=== PATIENT | male | born 1945 ===

== ENCOUNTER 2020-05-08 02:03 | Inpatient (IN) | payer MEDICARE ==
[2020-05-08] MEDS ORDERED: LORazepam 2 MG/ML VIAL IM PRN (03:24)
--- NOTE | 2020-05-08 11:58 | History and Physical Report ---
GP History & Physical - History of Present Illness Date of admission: 05/08/20 Date of Examination: 05/08/20 Reason for Admission: Danger to self, Danger to others, Impaired reality testing History of Present Illness: HPI Patient is a 74-year-old retired male with past psychiatric history of dementia who presents from [facility] after being brought there from the [facility] that he was at. It is reported that patient has been increasingly more aggressive towards the staff, and the staff at the facility do feel comfortable with the patient until he is had inpatient psychiatric management with medication stabilization PAST PSYCHIATRIC HISTORY: Diagnoses: N/A Suicide attempts or Self-harm behavior unknown Prior psychiatric hospitalizations N/A Substance Abuse history: N/A Previous psychiatric medications tried: Recently changed to Prozac Outpatient treatment: PAST MEDICAL HISTORY: Dementia Family Psychiatric History: None reported or documented SOCIAL HISTORY Marital Status: Living Arrangements: [facility] [place] Employment Status: Retired Access to guns/weapons: NA Education: N/A History of Abuse: N/A Legal History: N/A REVIEW OF SYSTEMS ROS cannot be reliably obtained from the patient due to her confusion and somnolence. MENTAL STATUS EXAMINATION General Appearance and Behavior: Age appropriate, good hygiene, wearing appropriate clothes, uncooperative polite with questioning. Cooperation: Withdrawn Psychomotor Behavior: Psychomotor agitation Mood: N/A Affect and affective range: Flat Thought Process: Tangential Thought Content: Paranoid and confused Speech: Normal volume, Regular rate and rhythm, Intellectual Functioning: Poor Suicidal Ideation: N/A Homicidal Ideation: N/A Impulse Control: Unimpaired Insight and Judgment: Impaired Memory: memory impaired Attention:Distractible, Orientation: Alert, but disoriented and confused Diagnoses: Assessment and Plan - Psychiatric problem (1) Dementia with behavioral disturbance Current Visit: Yes Status: Acute Treatment Plan Suicidal risperidone Patient admitted for inpatient psychiatric evaluation, medication adjustment and close monitoring The patient's behavior, mood, sleep and appetite will be closely monitored. Patient enrolled in individual and group therapeutic sessions and encouraged to attend. Patient provided with a safe and structured environment. Patient's physical health needs will be addressed by the Hospitalist. Hospitalist Consulted Labs including CBC, CMP, Lipid profile and Hemoglobin A1C levels ordered for baseline reference Social Assessment will be completed and the Visitor Services Associate will work with patient and family to ensure a suitable and safe disposition Medication adjustment will be made as clinically indicated Usual Wellness Cheondoism/Preservation: - Start Melatonin 5 mg po QHS to promote circadian rhythm - Start [place]-3 for brain health, reduce impulsivity, and as adjunctive treatment for mood disorder, continue upon discharge given overall benefits. - Start B1 prophylaxis with 200 mg po for 5 days The patient agreed on the treatment plan, understood the risk, benefit, alternative treatment, potential consequence of no treatment, and gave informed consent. Initial Certification Inpatient psych services: I certify that the inpatient psychiatric services are required for treatment that could reasonably be expected to improve the patient's condition. Estimated days: 7 Post hospital care: primary care provider, psychiatric provider Calls Legal Status: Voluntary Patient Problems: Current Active Problems Dementia with behavioral disturbance (Acute) Medications and Allergies Allergies Allergy/AdvReac Type Severity Reaction Status Date / Time No Known Drug Allergies Allergy Unknown Verified 05/08/20 03:11 Home Medications Medication Instructions Recorded Confirmed Last Taken Type Aspirin EC [Halfprin EC] 81 mg PO QDAY 05/08/20 05/08/20 Unknown History Cyanocobalamin [Vitamin B-12] 1,000 mcg PO QMONTH 05/08/20 05/08/[address] [[place] Cooper] 75 mg PO BID 05/08/20 05/08/20 Unknown History LORazepam [Lorazepam] 0.5 mg PO TID 05/08/20 05/08/20 Unknown History Memantine [Namenda] 10 mg PO BID 05/08/20 05/08/20 Unknown History Prazosin [Minipress] 2 mg PO DAILY 05/08/20 05/08/20 Unknown History Simvastatin 40 mg PO HS 05/08/20 05/08/20 Unknown History donepeziL [Aricept] 10 mg PO DAILY 05/08/20 05/08/20 Unknown History traMADoL [Ultram] 50 mg PO TID PRN 05/08/20 05/08/20 Unknown History traZODone [Desyrel] 50 mg PO QHS 05/08/20 05/08/20 Unknown History Active Meds: Active Medications Haloperidol Lactate (Haldol) 5 mg IM Q6H PRN PRN Reason: Agitation Lorazepam (Ativan) 1 mg IM Q6H PRN PRN Reason: Agitation Trazodone HCl (Desyrel) 50 mg PO QHS LOREN Results - Results Labs/Vitals: Last Vital Signs Temp 97.9 F 05/08/20 10:46 Pulse 90 05/08/20 10:46 Resp 17 05/08/20 10:46 BP 159/87 05/08/20 10:46 Pulse Ox 100 05/08/20 10:46 Physical Examination - Constitutional Vitals: Vital Signs Temp Pulse Resp BP Pulse Ox 97.9 F 90 17 159/87 100 05/08/20 10:46 05/08/20 10:46 05/08/20 10:46 05/08/20 10:46 05/08/20 10:46 Temperature -Last 24 Hours Temperature 97.9 F Mental Status Exam - Vital signs Last Vital Signs Temp 97.9 F 05/08/20 10:46 Pulse 90 05/08/20 10:46 Resp 17 05/08/20 10:46 BP 159/87 05/08/20 10:46 Pulse Ox 100 05/08/20 10:46 Assessment and Plan - Psychiatric problem (1) Dementia with behavioral disturbance Current Visit: Yes Status: Acute Physician Certification - Certification Statement Physician Certification Statement: This is an acknowledgement statement that ZACH YEBOAH is a 74 year old M who requires inpatient psychiatric admission for treatment which could reasonably be expected to improve the patient's condition for Estimated period of time patient will need to remain in the hospital: [ ] Plan for post-hospital care: [ ]
[2020-05-08] MEDS: OMEGA-3 FATTY ACIDS/FISH OIL 1 GRAM CAP PO SCH ×2 (13:05→21:03)
[2020-05-08 19:30] LABS: Basophils % (Auto) 0.6 % (0.0-1.8); Eosinophils % (Auto) 0.2 % (0.0-4.3); Hematocrit 38.7 % (35.5-45.6); Hemoglobin 13.1 gm/dl (11.8-15.2); Lymphocytes # (Auto) 1.1 K/mm3 (1.2-5.4); Lymphocytes % (Auto) 13.1 % (13.4-35.0); Mean Corpuscular HGB Conc 34 % (32-34); Mean Corpuscular Volume 98 fl (84-94); Monocytes # (Auto) 0.5 K/mm3 (0.0-0.8); Monocytes % (Auto) 5.7 % (0.0-7.3); Platelet Count 228 K/mm3 (140-440); Red Blood Count 3.97 M/mm3 (3.65-5.03); Red Cell Distribution Width 15.3 % (13.2-15.2)
[2020-05-08 19:54] LABS: Alanine Aminotransferase 10 units/L (7-56); Albumin 3.9 g/dL (3.9-5); BUN/Creatinine Ratio 16; Blood Urea Nitrogen 18 mg/dL (9-20); Calcium 9.7 mg/dL (8.4-10.2); Chol/HDL Ratio 2.68 %; HDL Cholesterol 47 mg/dL (40-59); Hemolysis Index 17; LDL Cholesterol,Direct 68 mg/dL (50-130)
--- NOTE | 2020-05-08 20:53 | Consultation ---
History of Present Illness - Reason for Consult Consult date: 05/08/20 Medical management Requesting physician: ESE RODRIGUEZ - History of Present Illness 74 YO Male with Vascular Dementia with Behavioral Disturbance, Cerebral Atherosclerosis, HLD, PTSD admitted to [facility] for Psychiatric stabilization. Patient seen and evaluated in the recreation room and found to be in no acute distress. No reported nursing events. Patient denies fever, chills, chest pain, palpitation, productive cough, recent ill contacts, or known exposure to COVID-19. Past History Past Medical History: hyperlipidemia, other (See HPI) Past Surgical History: No surgical history, Other (Reviewed) Social history: . denies: smoking, alcohol abuse Family history: hypertension Medications and Allergies Allergies Allergy/AdvReac Type Severity Reaction Status Date / Time No Known Drug Allergies Allergy Unknown Verified 05/08/20 03:11 Home Medications Medication Instructions Recorded Confirmed Last Taken Type Aspirin EC [Halfprin EC] 81 mg PO QDAY 05/08/20 05/08/20 Unknown History Cyanocobalamin [Vitamin B-12] 1,000 mcg PO QMONTH 05/08/20 05/08/[address] [[place] Cooper] 75 mg PO BID 05/08/20 05/08/20 Unknown History LORazepam [Lorazepam] 0.5 mg PO TID 05/08/20 05/08/20 Unknown History Memantine [Namenda] 10 mg PO BID 05/08/20 05/08/20 Unknown History Prazosin [Minipress] 2 mg PO DAILY 05/08/20 05/08/20 Unknown History Simvastatin 40 mg PO HS 05/08/20 05/08/20 Unknown History donepeziL [Aricept] 10 mg PO DAILY 05/08/20 05/08/20 Unknown History traMADoL [Ultram] 50 mg PO TID PRN 05/08/20 05/08/20 Unknown History traZODone [Desyrel] 50 mg PO QHS 05/08/20 05/08/20 Unknown History Active Meds: Active Medications Fish Oil (Fish Oil) 2,000 mg PO BID LOREN Last Admin: 05/08/20 13:05 Dose: Not Given Documented by: Haloperidol Lactate (Haldol) 5 mg IM Q6H PRN PRN Reason: Agitation Lorazepam (Ativan) 1 mg IM Q6H PRN PRN Reason: Agitation Mirtazapine (Remeron) 15 mg PO QHS LOREN Risperidone (Risperdal) 1 mg PO BID LOREN Review of Systems Constitutional: no weight gain, no fever, no chills, no sweats Ears, nose, mouth and throat: no ear pain, no ear discharge, no decreased hearing, no nasal congestion Cardiovascular: no chest pain, no palpitations, no rapid/irregular heart beat, no syncope Respiratory: no cough, no cough with sputum, no shortness of breath Gastrointestinal: no abdominal pain, no vomiting, no diarrhea, no change in bowel habits, no hematemesis Genitourinary Male: no hematuria, no flank pain, no discharge, no urinary hesitancy, no nocturia Rectal: no pain, no bleeding Musculoskeletal: no neck pain, no shooting arm pain Integumentary: no rash, no pruritis, no wounds, no jaundice Neurological: no head injury, no paralysis, no numbness, no tingling, no syncope Psychiatric: no anxiety Endocrine: no cold intolerance, no heat intolerance, no excessive thirst, no polyuria Hematologic/Lymphatic: no easy bruising, no easy bleeding Exam - Constitutional Vitals: Temp Pulse Resp BP Pulse Ox 97.9 F 90 17 159/87 100 05/08/20 10:46 05/08/20 10:46 05/08/20 10:46 05/08/20 10:46 05/08/20 10:46 General appearance: Present: no acute distress, well-nourished - EENT Eyes: Present: PERRL ENT: hearing intact, clear oral mucosa - Neck Neck: Present: supple, normal ROM - Respiratory Respiratory effort: normal Respiratory: bilateral: CTA - Cardiovascular Heart Sounds: Present: S1 & S2. Absent: rub, click - Extremities Extremities: pulses symmetrical, No edema Peripheral Pulses: within normal limits - Abdominal General gastrointestinal: Present: soft, non-tender, non-distended, normal bowel sounds Male genitourinary: Present: normal - Integumentary Integumentary: Present: clear, warm, dry - Musculoskeletal Musculoskeletal: gait normal, strength equal bilaterally - Psychiatric Psychiatric: appropriate mood/affect, intact judgment & insight - Neurologic Neurologic: CNII-XII intact, moves all extremities Results - Labs CBC & Chem 7: 05/08/20 19:10 05/08/20 19:10 Labs: Abnormal lab results 05/08/20 05/08/20 Range/Units 19:10 19:10 MCV 98 H (84-94) fl MCH 33 H (28-32) pg RDW 15.3 H (13.2-15.2) % Lymph % (Auto) 13.1 L (13.4-35.0) % Lymph # (Auto) 1.1 L (1.2-5.4) K/mm3 Seg Neutrophils % 80.4 H (40.0-70.0) % Sodium 146 H (137-145) mmol/L Potassium 3.5 L (3.6-5.0) mmol/L Chloride 110.9 H (98-107) mmol/L Glucose 114 H (75-100) mg/dL Assessment and Plan - Patient Problems (1) Dementia with behavioral disturbance Current Visit: Yes Status: Acute Plan to address problem: Verbal prompting, verbal redirection, benzodiazepine therapy as clinical indicated, supportive care. (2) Cerebral atherosclerosis Current Visit: Yes Status: Acute Plan to address problem: Risk factor reduction therapy, supportive care. Aspirin therapy.
[2020-05-08] MEDS: MIRTAZAPINE 15 MG TAB PO SCH (21:03)
[2020-05-08] MEDS: risperiDONE 1 MG TAB PO SCH (21:03)
[2020-05-08] MEDS ORDERED: traZODone 50 MG TAB PO SCH (22:00)
[2020-05-08] MEDS ORDERED: NON-FORMULARY EACH (Simvastatin [Simvastatin] 40 MG) PO SCH (22:00)
[2020-05-08] MEDS: traZODone 50 MG TAB PO SCH (22:02)
[2020-05-08] MEDS: MEMANTINE 10 MG TAB PO SCH (22:02)
[2020-05-08] MEDS: DICLOFENAC DR 75 MG TAB PO SCH (22:03)
[2020-05-08] MEDS: PRAVASTATIN 80 MG TAB PO SCH (22:03)
--- NOTE | 2020-05-09 07:25 | Progress Note ---
Subjective Date of service: 05/09/20 Principal diagnosis: (1) Dementia with behavioral disturbance Subjective Comment: Per Psych Nurse: Last evening the patient was confused. He was tearful one time while looking for his . He was easily redirectable. Patient was medication compliant. He had no difficulty going to sleep when he went to bed. Overnight the patient rested quietly. He presents as sleeping 8 plus hours. Will continue to monitor patient for safety. Psych Progress Patient has severe demetia, not articulate and able to comprehend questions asked. Patient is being managed and observed for behv disturbances reported from receiving facility. REVIEW OF SYSTEMS ROS cannot be reliably obtained from the patient due to her confusion and somnolence. MENTAL STATUS EXAMINATION General Appearance and Behavior: Age appropriate, good hygiene, wearing appropriate clothes, uncooperative polite with questioning. Cooperation: Withdrawn Psychomotor Behavior: Psychomotor agitation Mood: N/A Affect and affective range: Flat Thought Process: Tangential Thought Content: Paranoid and confused Speech: Normal volume, Regular rate and rhythm, Intellectual Functioning: Poor Suicidal Ideation: N/A Homicidal Ideation: N/A Impulse Control: Unimpaired Insight and Judgment: Impaired Memory: memory impaired Attention:Distractible, Orientation: Alert, but disoriented and confused Diagnoses: Assessment and Plan - Psychiatric problem (1) Dementia with behavioral disturbance Current Visit: Yes Status: Acute Treatment Plan Started on Risperidone, will continue to monitor Patient admitted for inpatient psychiatric evaluation, medication adjustment and close monitoring The patient's behavior, mood, sleep and appetite will be closely monitored. Patient enrolled in individual and group therapeutic sessions and encouraged to attend. Patient provided with a safe and structured environment. Patient's physical health needs will be addressed by the Hospitalist. Hospitalist Consulted Labs including CBC, CMP, Lipid profile and Hemoglobin A1C levels ordered for baseline reference Social Assessment will be completed and the Special Delivery Mail Carrier will work with patient and family to ensure a suitable and safe disposition Medication adjustment will be made as clinically indicated Usual Wellness Shinto/Preservation: - Start Melatonin 5 mg po QHS to promote circadian rhythm - Start [place]-3 for brain health, reduce impulsivity, and as adjunctive treatment for mood disorder, continue upon discharge given overall benefits. - Start B1 prophylaxis with 200 mg po for 5 days The patient agreed on the treatment plan, understood the risk, benefit, alternative treatment, potential consequence of no treatment, and gave informed consent. Initial Certification Inpatient psych services: I certify that the inpatient psychiatric services are required for treatment th at could reasonably be expected to improve the patient's condition. Estimated days: 6 Post hospital care: primary care provider, psychiatric provider Assessment and Plan - Patient Problems (1) Dementia with behavioral disturbance Current Visit: Yes Status: Acute Medications and Allergies Allergies Allergy/AdvReac Type Severity Reaction Status Date / Time No Known Drug Allergies Allergy Unknown Verified 05/08/20 03:11 Home Medications Medication Instructions Recorded Confirmed Last Taken Type Aspirin EC [Halfprin EC] 81 mg PO QDAY 05/08/20 05/08/20 Unknown History Cyanocobalamin [Vitamin B-12] 1,000 mcg PO QMONTH 05/08/20 05/08/[address] [[place] Cooper] 75 mg PO BID 05/08/20 05/08/20 Unknown History LORazepam [Lorazepam] 0.5 mg PO TID 05/08/20 05/08/20 Unknown History Memantine [Namenda] 10 mg PO BID 05/08/20 05/08/20 Unknown History Prazosin [Minipress] 2 mg PO DAILY 05/08/20 05/08/20 Unknown History Simvastatin 40 mg PO HS 05/08/20 05/08/20 Unknown History donepeziL [Aricept] 10 mg PO DAILY 05/08/20 05/08/20 Unknown History traMADoL [Ultram] 50 mg PO TID PRN 05/08/20 05/08/20 Unknown History traZODone [Desyrel] 50 mg PO QHS 05/08/20 05/08/20 Unknown History Active Meds: Active Medications Aspirin (Halfprin Ec) 81 mg PO QDAY [facility] Cyanocobalamin (Vitamin B-12) 1,000 mcg PO QMONTH [facility] Diclofenac Sodium (Voltaren Dr) 75 mg PO BID [facility] Last Admin: 05/08/20 22:03 Dose: Not Given Documented by: Donepezil HCl (Aricept) 10 mg PO DAILY [facility] Fish Oil (Fish Oil) 2,000 mg PO BID [facility] Last Admin: 05/08/20 21:03 Dose: 2,000 mg Documented by: Haloperidol Lactate (Haldol) 5 mg IM Q6H PRN PRN Reason: Agitation Lorazepam (Ativan) 1 mg IM Q6H PRN PRN Reason: Agitation Lorazepam (Ativan) 0.5 mg PO TID [facility] Memantine (Memantine) 10 mg PO BID [facility] Last Admin: 05/08/20 22:02 Dose: Not Given Documented by: Mirtazapine (Remeron) 15 mg PO QHS [facility] Last Admin: 05/08/20 21:03 Dose: 15 mg Documented by: Pravastatin Sodium (Pravachol) 80 mg PO QHS [facility] Last Admin: 05/08/20 22:03 Dose: Not Given Documented by: Prazosin HCl (Prazosin) 2 mg PO DAILY [facility] Risperidone (Risperdal) 1 mg PO BID [facility] Last Admin: 05/08/20 21:03 Dose: 1 mg Documented by: Tramadol HCl (Ultram) 50 mg PO TID PRN PRN Reason: arthritis Trazodone HCl (Desyrel) 50 mg PO QHS [facility] Last Admin: 05/08/20 22:02 Dose: Not Given Documented by: Results - Results Labs/Vitals: Laboratory Last Values WBC 8.7 K/mm3 (4.5-11.0) 05/08/20 19:10 RBC 3.97 M/mm3 (3.65-5.03) 05/08/20 19:10 Hgb 13.1 gm/dl (11.8-15.2) 05/08/20 19:10 Hct 38.7 % (35.5-45.6) 05/08/20 19:10 MCV 98 fl (84-94) H 05/08/20 19:10 MCH 33 pg (28-32) H 05/08/20 19:10 MCHC 34 % (32-34) 05/08/20 19:10 RDW 15.3 % (13.2-15.2) H 05/08/20 19:10 Plt Count 228 K/mm3 (140-440) 05/08/20 19:10 Lymph % (Auto) 13.1 % (13.4-35.0) L 05/08/20 19:10 [place] % (Auto) 5.7 % (0.0-7.3) 05/08/20 19:10 Eos % (Auto) 0.2 % (0.0-4.3) 05/08/20 19:10 Baso % (Auto) 0.6 % (0.0-1.8) 05/08/20 19:10 Lymph # (Auto) 1.1 K/mm3 (1.2-5.4) L 05/08/20 19:10 [place] # (Auto) 0.5 K/mm3 (0.0-0.8) 05/08/20 19:10 Eos # (Auto) 0.0 K/mm3 (0.0-0.4) 05/08/20 19:10 Baso # (Auto) 0.0 K/mm3 (0.0-0.1) 05/08/20 19:10 Seg Neutrophils % 80.4 % (40.0-70.0) H 05/08/20 19:10 Seg Neutrophils # 7.0 K/mm3 (1.8-7.7) 05/08/20 19:10 Sodium 146 mmol/L (137-145) H 05/08/20 19:10 Potassium 3.5 mmol/L (3.6-5.0) L 05/08/20 19:10 Chloride 110.9 mmol/L (98-107) H 05/08/20 19:10 Carbon Dioxide 26 mmol/L (22-30) 05/08/20 19:10 Anion Gap 13 mmol/L 05/08/20 19:10 BUN 18 mg/dL (9-20) 05/08/20 19:10 Creatinine 1.1 mg/dL (0.8-1.3) 05/08/20 19:10 Estimated GFR > 60 ml/min 05/08/20 19:10 BUN/Creatinine Ratio 16 % 05/08/20 19:10 Glucose 114 mg/dL (75-100) H 05/08/20 19:10 POC Glucose 101 mg/dL (70-105) 05/08/20 19:24 Hemoglobin A1c 5.3 % (4-6) 05/08/20 19:10 Calcium 9.7 mg/dL (8.4-10.2) 05/08/20 19:10 Total Bilirubin 0.90 mg/dL (0.1-1.2) 05/08/20 19:10 AST 25 units/L (5-40) 05/08/20 19:10 ALT 10 units/L (7-56) 05/08/20 19:10 Alkaline Phosphatase 84 units/L (35-129) 05/08/20 19:10 Total Protein 6.5 g/dL (6.3-8.2) 05/08/20 19:10 Albumin 3.9 g/dL (3.9-5) 05/08/20 19:10 Albumin/Globulin Ratio 1.5 % 05/08/20 19:10 Triglycerides 76 mg/dL (2-149) 05/08/20 19:10 Cholesterol 126 mg/dL (50-199) 05/08/20 19:10 LDL Cholesterol Direct 68 mg/dL (50-130) 05/08/20 19:10 HDL Cholesterol 47 mg/dL (40-59) 05/08/20 19:10 Cholesterol/HDL Ratio 2.68 % 05/08/20 19:10 TSH 0.524 mlU/mL (0.270-4.200) 05/08/20 19:10 Last Vital Signs Temp 97.9 F 05/08/20 10:46 Pulse 90 05/08/20 10:46 Resp 17 05/08/20 10:46 BP 159/87 05/08/20 10:46 Pulse Ox 100 05/08/20 10:46
[2020-05-09] MEDS ORDERED: PRAZOSIN 2 MG PO SCH (10:00)
[2020-05-09] MEDS: DICLOFENAC DR 75 MG TAB PO SCH ×2 (10:30→21:07)
[2020-05-09] MEDS: DONEPEZIL 10 MG TAB PO SCH (10:33)
[2020-05-09] MEDS: risperiDONE 1 MG TAB PO SCH ×2 (10:33→21:08)
[2020-05-09] MEDS: LORazepam 0.5 MG TAB PO SCH ×3 (10:33→20:42)
[2020-05-09] MEDS: MEMANTINE 10 MG TAB PO SCH ×2 (10:34→21:07)
[2020-05-09] MEDS: OMEGA-3 FATTY ACIDS/FISH OIL 1 GRAM CAP PO SCH ×2 (10:34→21:08)
[2020-05-09] MEDS: PRAZOSIN 1 MG CAP PO SCH (11:04)
[2020-05-09] MEDS: ASPIRIN EC 81 MG TAB PO SCH (11:05)
--- NOTE | 2020-05-09 20:54 | Progress Note ---
Assessment and Plan - Patient Problems (1) Dementia with behavioral disturbance Current Visit: Yes Status: Acute Plan to address problem: Verbal prompting, verbal redirection, benzodiazepine therapy as clinical indicated, supportive care. (2) Cerebral atherosclerosis Current Visit: Yes Status: Acute Plan to address problem: Risk factor reduction therapy, supportive care. Aspirin therapy. History Interval history: 74 YO Male with Vascular Dementia with Behavioral Disturbance, Cerebral Atherosclerosis, HLD, PTSD admitted to [facility] for Psychiatric stabilization. Patient seen and evaluated in the recreation room and found to be in no acute distress. No reported nursing events. Hospitalist Physical - Constitutional Vitals: Temp Pulse Resp BP Pulse Ox 97.8 F 101 H 20 89/54 93 05/09/20 08:33 05/09/20 11:04 05/09/20 08:33 05/09/20 11:04 05/09/20 08:33 General appearance: Present: no acute distress, well-nourished - EENT Eyes: Present: PERRL, EOM intact ENT: hearing intact - Neck Neck: Present: supple - Respiratory Respiratory effort: normal Respiratory: bilateral: CTA - Cardiovascular Rhythm: regular Heart Sounds: Present: S1 & S2 - Extremities Extremities: no ischemia Peripheral Pulses: within normal limits - Abdominal General gastrointestinal: soft, non-tender, non-distended - Integumentary Integumentary: Present: clear, dry - Psychiatric Psychiatric: cooperative - Neurologic Neurologic: CNII-XII intact Results - Labs CBC & Chem 7: 05/08/20 19:10 05/08/20 19:10 Labs: Laboratory Last Values WBC 8.7 K/mm3 (4.5-11.0) 05/08/20 19:10 RBC 3.97 M/mm3 (3.65-5.03) 05/08/20 19:10 Hgb 13.1 gm/dl (11.8-15.2) 05/08/20 19:10 Hct 38.7 % (35.5-45.6) 05/08/20 19:10 MCV 98 fl (84-94) H 05/08/20 19:10 MCH 33 pg (28-32) H 05/08/20 19:10 MCHC 34 % (32-34) 05/08/20 19:10 RDW 15.3 % (13.2-15.2) H 05/08/20 19:10 Plt Count 228 K/mm3 (140-440) 05/08/20 19:10 Lymph % (Auto) 13.1 % (13.4-35.0) L 05/08/20 19:10 [place] % (Auto) 5.7 % (0.0-7.3) 05/08/20 19:10 Eos % (Auto) 0.2 % (0.0-4.3) 05/08/20 19:10 Baso % (Auto) 0.6 % (0.0-1.8) 05/08/20 19:10 Lymph # (Auto) 1.1 K/mm3 (1.2-5.4) L 05/08/20 19:10 [place] # (Auto) 0.5 K/mm3 (0.0-0.8) 05/08/20 19:10 Eos # (Auto) 0.0 K/mm3 (0.0-0.4) 05/08/20 19:10 Baso # (Auto) 0.0 K/mm3 (0.0-0.1) 05/08/20 19:10 Seg Neutrophils % 80.4 % (40.0-70.0) H 05/08/20 19:10 Seg Neutrophils # 7.0 K/mm3 (1.8-7.7) 05/08/20 19:10 Sodium 146 mmol/L (137-145) H 05/08/20 19:10 Potassium 3.5 mmol/L (3.6-5.0) L 05/08/20 19:10 Chloride 110.9 mmol/L (98-107) H 05/08/20 19:10 Carbon Dioxide 26 mmol/L (22-30) 05/08/20 19:10 Anion Gap 13 mmol/L 05/08/20 19:10 BUN 18 mg/dL (9-20) 05/08/20 19:10 Creatinine 1.1 mg/dL (0.8-1.3) 05/08/20 19:10 Estimated GFR > 60 ml/min 05/08/20 19:10 BUN/Creatinine Ratio 16 % 05/08/20 19:10 Glucose 114 mg/dL (75-100) H 05/08/20 19:10 POC Glucose 101 mg/dL (70-105) 05/08/20 19:24 Hemoglobin A1c 5.3 % (4-6) 05/08/20 19:10 Calcium 9.7 mg/dL (8.4-10.2) 05/08/20 19:10 Total Bilirubin 0.90 mg/dL (0.1-1.2) 05/08/20 19:10 AST 25 units/L (5-40) 05/08/20 19:10 ALT 10 units/L (7-56) 05/08/20 19:10 Alkaline Phosphatase 84 units/L (35-129) 05/08/20 19:10 Total Protein 6.5 g/dL (6.3-8.2) 05/08/20 19:10 Albumin 3.9 g/dL (3.9-5) 05/08/20 19:10 Albumin/Globulin Ratio 1.5 % 05/08/20 19:10 Triglycerides 76 mg/dL (2-149) 05/08/20 19:10 Cholesterol 126 mg/dL (50-199) 05/08/20 19:10 LDL Cholesterol Direct 68 mg/dL (50-130) 05/08/20 19:10 HDL Cholesterol 47 mg/dL (40-59) 05/08/20 19:10 Cholesterol/HDL Ratio 2.68 % 05/08/20 19:10 TSH 0.524 mlU/mL (0.270-4.200) 05/08/20 19:10 [place]/IV: Voiding Method Toilet Active Medications - Current Medications Current Medications: Generic Name Dose Route Start Last Admin Trade Name Freq PRN Reason Stop Dose Admin Aspirin 81 mg 05/09/20 10:00 05/09/20 11:05 Halfprin Ec PO 81 mg QDAY LOREN Administration Cyanocobalamin 1,000 mcg 06/07/20 10:00 Vitamin B-12 PO QMONTH LOREN Diclofenac Sodium 75 mg 05/08/20 22:00 05/09/20 10:[address] PO 75 mg BID LOREN Administration Donepezil HCl 10 mg 05/09/20 10:00 05/09/20 10:33 Aricept PO 10 mg DAILY LOREN Administration Fish Oil 2,000 mg 05/08/20 12:00 05/09/20 10:34 Fish Oil PO 2,000 mg BID LOREN Administration Haloperidol Lactate 5 mg 05/08/20 03:25 Haldol IM Q6H PRN Agitation Lorazepam 1 mg 05/08/20 03:24 Ativan IM Q6H PRN Agitation Lorazepam 0.5 mg 05/09/20 08:00 05/09/20 20:42 Ativan PO 0.5 mg TID LOREN Administration Memantine 10 mg 05/08/20 22:00 05/09/20 10:34 Memantine PO 10 mg BID LOREN Administration Mirtazapine 15 mg 05/08/20 22:00 05/08/20 21:03 Remeron PO 15 mg QHS LOREN Administration Pravastatin Sodium 80 mg 05/08/20 22:00 05/08/20 22:03 Pravachol PO Not Given QHS LOREN Prazosin HCl 2 mg 05/09/20 10:00 05/09/20 11:04 Prazosin PO Not Given DAILY LOREN Risperidone 1 mg 05/08/20 22:00 05/09/20 10:33 Risperdal PO 1 mg BID LOREN Administration Tramadol HCl 50 mg 05/08/20 20:53 Ultram PO TID PRN arthritis Trazodone HCl 50 mg 05/08/20 22:00 05/08/20 22:02 Desyrel PO Not Given QHS [facility]
[2020-05-09] MEDS: PRAVASTATIN 80 MG TAB PO SCH (21:07)
[2020-05-09] MEDS: traZODone 50 MG TAB PO SCH (21:08)
[2020-05-09] MEDS: MIRTAZAPINE 15 MG TAB PO SCH (21:08)
--- NOTE | 2020-05-10 07:37 | Progress Note ---
Subjective Date of service: 05/10/20 Principal diagnosis: (1) Dementia with behavioral disturbance Subjective Comment: Per Psych Nurse: Received sitting quietly on the w/c. A&OX1, name only. Pt somewhat confused. No sign of pain noted. No acute distress observed and none reported. Will continue to monitor. Psych Progress Attempts were made to try to have a conversation with patient this a.m., patient was repetitive of the questions I was asking him. Patient has severe demetia, not articulate and able to comprehend questions asked. Patient is being managed and observed for behv disturbances reported from receiving facility. Reason for continued inpatient psychiatric hospitalization: We will continue to observe for mood and behavioral stability REVIEW OF SYSTEMS ROS cannot be reliably obtained from the patient due to her confusion and somnolence. MENTAL STATUS EXAMINATION General Appearance and Behavior: Age appropriate, good hygiene, wearing appropriate clothes, uncooperative polite with questioning. Cooperation: Withdrawn Psychomotor Behavior: Psychomotor agitation Mood: N/A Affect and affective range: Flat Thought Process: Tangential Thought Content: Paranoid and confused Speech: Normal volume, Regular rate and rhythm, Intellectual Functioning: Poor Suicidal Ideation: N/A Homicidal Ideation: N/A Impulse Control: Unimpaired Insight and Judgment: Impaired Memory: memory impaired Attention:Distractible, Orientation: Alert, but disoriented and confused Diagnoses: Assessment and Plan - Psychiatric problem (1) Dementia with behavioral disturbance Current Visit: Yes Status: Acute Treatment Plan Started on Risperidone, will continue to monitor Patient admitted for inpatient psychiatric evaluation, medication adjustment and close monitoring The patient's behavior, mood, sleep and appetite will be closely monitored. Patient enrolled in individual and group therapeutic sessions and encouraged to attend. Patient provided with a safe and structured environment. Patient's physical health needs will be addressed by the Hospitalist. Hospitalist Consulted Labs including CBC, CMP, Lipid profile and Hemoglobin A1C levels ordered for baseline reference Social Assessment will be completed and the Poultry Scalder will work with patient and family to ensure a suitable and safe disposition Medication adjustment will be made as clinically indicated Usual Wellness Christianity/Preservation: - Start Melatonin 5 mg po QHS to promote circadian rhythm - Start [place]-3 for brain health, reduce impulsivity, and as adjunctive treatment for mood disorder, continue upon discharge given overall benefits. - Start B1 prophylaxis with 200 mg po for 5 days The patient agreed on the treatment plan, understood the risk, benefit, alternative treatment, potential consequence of no treatment, and gave informed consent. Initial Certification Inpatient psych services: I certify that the inpatient psychiatric services are required for treatment that could reasonably be expected to improve the patient's condition. Estimated days:5 Post hospital care: primary care provider, psychiatric provider Assessment and Plan - Patient Problems (1) Dementia with behavioral disturbance Current Visit: Yes Status: Acute Medications and Allergies Allergies Allergy/AdvReac Type Severity Reaction Status Date / Time No Known Drug Allergies Allergy Unknown Verified 05/08/20 03:11 Home Medications Medication Instructions Recorded Confirmed Last Taken Type Aspirin EC [Halfprin EC] 81 mg PO QDAY 05/08/20 05/08/20 Unknown History Cyanocobalamin [Vitamin B-12] 1,000 mcg PO QMONTH 05/08/20 05/08/[address] [[place]] 75 mg PO BID 05/08/20 05/08/20 Unknown History LORazepam [Lorazepam] 0.5 mg PO TID 05/08/20 05/08/20 Unknown History Memantine [Namenda] 10 mg PO BID 05/08/20 05/08/20 Unknown History Prazosin [Minipress] 2 mg PO DAILY 05/08/20 05/08/20 Unknown History Simvastatin 40 mg PO HS 05/08/20 05/08/20 Unknown History donepeziL [Aricept] 10 mg PO DAILY 05/08/20 05/08/20 Unknown History traMADoL [Ultram] 50 mg PO TID PRN 05/08/20 05/08/20 Unknown History traZODone [Desyrel] 50 mg PO QHS 05/08/20 05/08/20 Unknown History Active Meds: Active Medications Aspirin (Halfprin Ec) 81 mg PO QDAY [facility] Last Admin: 05/09/20 11:05 Dose: 81 mg Documented by: Cyanocobalamin (Vitamin B-12) 1,000 mcg PO QMONTH [facility] Diclofenac Sodium ([place] Cooper) 75 mg PO BID [facility] Last Admin: 05/09/20 21:07 Dose: 75 mg Documented by: Donepezil HCl (Aricept) 10 mg PO DAILY [facility] Last Admin: 05/09/20 10:33 Dose: 10 mg Documented by: Fish Oil (Fish Oil) 2,000 mg PO BID [facility] Last Admin: 05/09/20 21:08 Dose: 2,000 mg Documented by: Haloperidol Lactate (Haldol) 5 mg IM Q6H PRN PRN Reason: Agitation Lorazepam (Ativan) 1 mg IM Q6H PRN PRN Reason: Agitation Lorazepam (Ativan) 0.5 mg PO TID [facility] Last Admin: 05/09/20 20:42 Dose: 0.5 mg Documented by: Memantine (Memantine) 10 mg PO BID [facility] Last Admin: 05/09/20 21:07 Dose: 10 mg Documented by: Mirtazapine (Remeron) 15 mg PO QHS [facility] Last Admin: 05/09/20 21:08 Dose: 15 mg Documented by: Pravastatin Sodium (Pravachol) 80 mg PO QHS [facility] Last Admin: 05/09/20 21:07 Dose: 80 mg Documented by: Prazosin HCl (Prazosin) 2 mg PO DAILY [facility] Last Admin: 05/09/20 11:04 Dose: Not Given Documented by: Risperidone (Risperdal) 1 mg PO BID [facility] Last Admin: 05/09/20 21:08 Dose: 1 mg Documented by: Tramadol HCl (Ultram) 50 mg PO TID PRN PRN Reason: arthritis Trazodone HCl (Desyrel) 50 mg PO QHS [facility] Last Admin: 05/09/20 21:08 Dose: 50 mg Documented by: Results - Results Labs/Vitals: Laboratory Last Values WBC 8.7 K/mm3 (4.5-11.0) 05/08/20 19:10 RBC 3.97 M/mm3 (3.65-5.03) 05/08/20 19:10 Hgb 13.1 gm/dl (11.8-15.2) 05/08/20 19:10 Hct 38.7 % (35.5-45.6) 05/08/20 19:10 MCV 98 fl (84-94) H 05/08/20 19:10 MCH 33 pg (28-32) H 05/08/20 19:10 MCHC 34 % (32-34) 05/08/20 19:10 RDW 15.3 % (13.2-15.2) H 05/08/20 19:10 Plt Count 228 K/mm3 (140-440) 05/08/20 19:10 Lymph % (Auto) 13.1 % (13.4-35.0) L 05/08/20 19:10 [place] % (Auto) 5.7 % (0.0-7.3) 05/08/20 19:10 Eos % (Auto) 0.2 % (0.0-4.3) 05/08/20 19:10 Baso % (Auto) 0.6 % (0.0-1.8) 05/08/20 19:10 Lymph # (Auto) 1.1 K/mm3 (1.2-5.4) L 05/08/20 19:10 [place] # (Auto) 0.5 K/mm3 (0.0-0.8) 05/08/20 19:10 Eos # (Auto) 0.0 K/mm3 (0.0-0.4) 05/08/20 19:10 Baso # (Auto) 0.0 K/mm3 (0.0-0.1) 05/08/20 19:10 Seg Neutrophils % 80.4 % (40.0-70.0) H 05/08/20 19:10 Seg Neutrophils # 7.0 K/mm3 (1.8-7.7) 05/08/20 19:10 Sodium 146 mmol/L (137-145) H 05/08/20 19:10 Potassium 3.5 mmol/L (3.6-5.0) L 05/08/20 19:10 Chloride 110.9 mmol/L (98-107) H 05/08/20 19:10 Carbon Dioxide 26 mmol/L (22-30) 05/08/20 19:10 Anion Gap 13 mmol/L 05/08/20 19:10 BUN 18 mg/dL (9-20) 05/08/20 19:10 Creatinine 1.1 mg/dL (0.8-1.3) 05/08/20 19:10 Estimated GFR > 60 ml/min 05/08/20 19:10 BUN/Creatinine Ratio 16 % 05/08/20 19:10 Glucose 114 mg/dL (75-100) H 05/08/20 19:10 POC Glucose 101 mg/dL (70-105) 05/08/20 19:24 Hemoglobin A1c 5.3 % (4-6) 05/08/20 19:10 Calcium 9.7 mg/dL (8.4-10.2) 05/08/20 19:10 Total Bilirubin 0.90 mg/dL (0.1-1.2) 05/08/20 19:10 AST 25 units/L (5-40) 05/08/20 19:10 ALT 10 units/L (7-56) 05/08/20 19:10 Alkaline Phosphatase 84 units/L (35-129) 05/08/20 19:10 Total Protein 6.5 g/dL (6.3-8.2) 05/08/20 19:10 Albumin 3.9 g/dL (3.9-5) 05/08/20 19:10 Albumin/Globulin Ratio 1.5 % 05/08/20 19:10 Triglycerides 76 mg/dL (2-149) 05/08/20 19:10 Cholesterol 126 mg/dL (50-199) 05/08/20 19:10 LDL Cholesterol Direct 68 mg/dL (50-130) 05/08/20 19:10 HDL Cholesterol 47 mg/dL (40-59) 05/08/20 19:10 Cholesterol/HDL Ratio 2.68 % 05/08/20 19:10 TSH 0.524 mlU/mL (0.270-4.200) 05/08/20 19:10 Last Vital Signs Temp 97.8 F 05/09/20 19:08 Pulse 116 H 05/09/20 19:08 Resp 22 05/09/20 19:08 BP 107/88 05/09/20 19:08 Pulse Ox 94 05/09/20 19:08
[2020-05-10] MEDS: LORazepam 0.5 MG TAB PO SCH ×3 (10:11→20:52)
[2020-05-10] MEDS: risperiDONE 1 MG TAB PO SCH ×2 (10:11→21:47)
[2020-05-10] MEDS: DONEPEZIL 10 MG TAB PO SCH (10:12)
[2020-05-10] MEDS: MEMANTINE 10 MG TAB PO SCH ×2 (10:12→21:46)
[2020-05-10] MEDS: DICLOFENAC DR 75 MG TAB PO SCH ×2 (10:12→21:46)
[2020-05-10] MEDS: OMEGA-3 FATTY ACIDS/FISH OIL 1 GRAM CAP PO SCH ×2 (10:14→21:45)
[2020-05-10] MEDS: ASPIRIN EC 81 MG TAB PO SCH (10:14)
[2020-05-10] MEDS: PRAZOSIN 1 MG CAP PO SCH (10:15)
[2020-05-10] MEDS: MIRTAZAPINE 15 MG TAB PO SCH (21:45)
[2020-05-10] MEDS: PRAVASTATIN 80 MG TAB PO SCH (21:46)
[2020-05-10] MEDS: traZODone 50 MG TAB PO SCH (21:47)
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
[2020-05-11] MEDS: DICLOFENAC DR 75 MG TAB PO SCH ×2 (09:52→21:34)
[2020-05-11] MEDS: OMEGA-3 FATTY ACIDS/FISH OIL 1 GRAM CAP PO SCH ×2 (09:53→21:38)
[2020-05-11] MEDS: ASPIRIN EC 81 MG TAB PO SCH (09:53)
[2020-05-11] MEDS: DONEPEZIL 10 MG TAB PO SCH (09:54)
[2020-05-11] MEDS: risperiDONE 1 MG TAB PO SCH ×2 (09:54→21:40)
[2020-05-11] MEDS: LORazepam 0.5 MG TAB PO SCH ×3 (09:54→21:36)
[2020-05-11] MEDS: PRAZOSIN 1 MG CAP PO SCH (09:54)
[2020-05-11] MEDS: MEMANTINE 10 MG TAB PO SCH ×2 (09:56→21:39)
[2020-05-11] MEDS ORDERED: risperiDONE 1 MG TAB PO SCH (10:00)
[2020-05-11] MEDS: HALOPERIDOL LACTATE 5 MG/1 ML INJ IM PRN (12:21)
[2020-05-11] MEDS: traZODone 50 MG TAB PO SCH (21:35)
[2020-05-11] MEDS: MIRTAZAPINE 15 MG TAB PO SCH (21:39)
[2020-05-11] MEDS: PRAVASTATIN 80 MG TAB PO SCH (21:40)
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
[2020-05-12] MEDS: LORazepam 0.5 MG TAB PO SCH ×3 (10:55→21:08)
[2020-05-12] MEDS: risperiDONE 1 MG TAB PO SCH ×2 (14:05→21:07)
[2020-05-12] MEDS: MEMANTINE 10 MG TAB PO SCH ×2 (14:05→21:08)
[2020-05-12] MEDS: DONEPEZIL 10 MG TAB PO SCH (14:05)
[2020-05-12] MEDS: OMEGA-3 FATTY ACIDS/FISH OIL 1 GRAM CAP PO SCH ×2 (14:05→21:07)
[2020-05-12] MEDS: DICLOFENAC DR 75 MG TAB PO SCH ×2 (14:06→21:07)
[2020-05-12] MEDS: PRAZOSIN 1 MG CAP PO SCH (14:06)
[2020-05-12] MEDS: ASPIRIN EC 81 MG TAB PO SCH (14:25)
[2020-05-12] MEDS: PRAVASTATIN 80 MG TAB PO SCH (21:07)
[2020-05-12] MEDS: MIRTAZAPINE 15 MG TAB PO SCH (21:08)
[2020-05-12] MEDS: HALOPERIDOL LACTATE 5 MG/1 ML INJ IM PRN (21:38)
[2020-05-12] MEDS: traMADol 50 MG TAB PO PRN (21:39)
--- NOTE | 2020-05-13 09:28 | Progress Note ---
Subjective Date of service: 05/13/20 Principal diagnosis: (1) Dementia with behavioral disturbance Subjective Comment: The patient's medical record was reviewed and the patient's medical record was discussed with the nursing staff. The nurse caring for the patient states, he is combative, and not participating in group, pacing and taking things. During my interview with the patient today he is sleeping. He easily arouses. He is confused and difficult to follow. He's unable to give any insight as to how he is feeling. Reason for continued inpatient psychiatric hospitalization: Pt still aggressive, combative and resistive to care, not participating in group, will continue to observe for mood and behavioral stability REVIEW OF SYSTEMS ROS cannot be reliably obtained from the patient due to her confusion and somnolence. MENTAL STATUS EXAMINATION General Appearance and Behavior: Age appropriate, good hygiene, wearing appropriate clothes, cooperative Cooperation: Psychomotor Behavior: Psychomotor normal Mood: N/A Affect and affective range: Flat Thought Process: Tangential Thought Content: confused Speech: nonsensical Suicidal Ideation: N/A Homicidal Ideation: N/A Impulse Control: Unimpaired Insight and Judgment: Impaired Memory: memory impaired Attention: Distractible, Orientation: Alert, but disoriented and confused Assessment and Plan (1) Dementia with behavioral disturbance Current Visit: Yes Status: Acute Treatment Plan Patient admitted for inpatient psychiatric evaluation, medication adjustment and close monitoring The patient's behavior, mood, sleep and appetite will be closely monitored. Patient enrolled in individual and group therapeutic sessions and encouraged to attend. Patient provided with a safe and structured environment. Patient's physical health needs will be addressed by the Hospitalist. Hospitalist Consulted Labs including CBC, CMP, Lipid profile and Hemoglobin A1C levels ordered for baseline reference Social Assessment will be completed and the Area Coordinator will work with patient and family to ensure a suitable and safe disposition Medication adjustment will be made as clinically indicated Start Depakote DR 125mg po BID Usual Wellness Catholic/Preservation: - Start Melatonin 5 mg po QHS to promote circadian rhythm - Start [place]-3 for brain health, reduce impulsivity, and as adjunctive treatment for mood disorder, continue upon discharge given overall benefits. - Start B1 prophylaxis with 200 mg po for 5 days The patient agreed on the treatment plan, understood the risk, benefit, alternative treatment, potential consequence of no treatment, and gave informed consent. Estimated days:3 Post hospital care: primary care provider, psychiatric provider Case staffed with Dr. Rosado. Medications and Allergies Allergies Allergy/AdvReac Type Severity Reaction Status Date / Time No Known Drug Allergies Allergy Unknown Verified 05/08/20 03:11 Home Medications Medication Instructions Recorded Confirmed Last Taken Type Aspirin EC [Halfprin EC] 81 mg PO QDAY 05/08/20 05/08/20 Unknown History Cyanocobalamin [Vitamin B-12] 1,000 mcg PO QMONTH 05/08/20 05/08/[address] [[place] Cooper] 75 mg PO BID 05/08/20 05/08/20 Unknown History LORazepam [Lorazepam] 0.5 mg PO TID 05/08/20 05/08/20 Unknown History Memantine [Namenda] 10 mg PO BID 05/08/20 05/08/20 Unknown History Prazosin [Minipress] 2 mg PO DAILY 05/08/20 05/08/20 Unknown History Simvastatin 40 mg PO HS 05/08/20 05/08/20 Unknown History donepeziL [Aricept] 10 mg PO DAILY 05/08/20 05/08/20 Unknown History traMADoL [Ultram] 50 mg PO TID PRN 05/08/20 05/08/20 Unknown History traZODone [Desyrel] 50 mg PO QHS 05/08/20 05/08/20 Unknown History Active Meds: Active Medications Aspirin (Halfprin Ec) 81 mg PO QDAY [facility] Last Admin: 05/12/20 14:25 Dose: 81 mg Documented by: Cyanocobalamin (Vitamin B-12) 1,000 mcg PO QMONTH [facility] Diclofenac Sodium ([place] Cooper) 75 mg PO BID [facility] Last Admin: 05/12/20 21:07 Dose: 75 mg Documented by: Donepezil HCl (Aricept) 10 mg PO DAILY [facility] Last Admin: 05/12/20 14:05 Dose: 10 mg Documented by: Fish Oil (Fish Oil) 2,000 mg PO BID [facility] Last Admin: 05/12/20 21:07 Dose: 2,000 mg Documented by: Haloperidol Lactate (Haldol) 5 mg IM Q6H PRN PRN Reason: Agitation Last Admin: 05/12/20 21:38 Dose: 5 mg Documented by: Lorazepam (Ativan) 1 mg IM Q6H PRN PRN Reason: Agitation Lorazepam (Ativan) 0.5 mg PO TID [facility] Last Admin: 05/12/20 21:08 Dose: 0.5 mg Documented by: Memantine (Memantine) 10 mg PO BID [facility] Last Admin: 05/12/20 21:08 Dose: 10 mg Documented by: Mirtazapine (Remeron) 15 mg PO QHS [facility] Last Admin: 05/12/20 21:08 Dose: 15 mg Documented by: Pravastatin Sodium (Pravachol) 80 mg PO QHS [facility] Last Admin: 05/12/20 21:07 Dose: 80 mg Documented by: Prazosin HCl (Prazosin) 2 mg PO DAILY [facility] Last Admin: 05/12/20 14:06 Dose: 2 mg Documented by: Risperidone (Risperdal) 2 mg PO BID [facility] Last Admin: 05/12/20 21:07 Dose: 2 mg Documented by: Tramadol HCl (Ultram) 50 mg PO TID PRN PRN Reason: arthritis Last Admin: 05/12/20 21:39 Dose: 50 mg Documented by: Results - Results Labs/Vitals: Laboratory Last Values WBC 8.7 K/mm3 (4.5-11.0) 05/08/20 19:10 RBC 3.97 M/mm3 (3.65-5.03) 05/08/20 19:10 Hgb 13.1 gm/dl (11.8-15.2) 05/08/20 19:10 Hct 38.7 % (35.5-45.6) 05/08/20 19:10 MCV 98 fl (84-94) H 05/08/20 19:10 MCH 33 pg (28-32) H 05/08/20 19:10 MCHC 34 % (32-34) 05/08/20 19:10 RDW 15.3 % (13.2-15.2) H 05/08/20 19:10 Plt Count 228 K/mm3 (140-440) 05/08/20 19:10 Lymph % (Auto) 13.1 % (13.4-35.0) L 05/08/20 19:10 [place] % (Auto) 5.7 % (0.0-7.3) 05/08/20 19:10 Eos % (Auto) 0.2 % (0.0-4.3) 05/08/20 19:10 Baso % (Auto) 0.6 % (0.0-1.8) 05/08/20 19:10 Lymph # (Auto) 1.1 K/mm3 (1.2-5.4) L 05/08/20 19:10 [place] # (Auto) 0.5 K/mm3 (0.0-0.8) 05/08/20 19:10 Eos # (Auto) 0.0 K/mm3 (0.0-0.4) 05/08/20 19:10 Baso # (Auto) 0.0 K/mm3 (0.0-0.1) 05/08/20 19:10 Seg Neutrophils % 80.4 % (40.0-70.0) H 05/08/20 19:10 Seg Neutrophils # 7.0 K/mm3 (1.8-7.7) 05/08/20 19:10 Sodium 146 mmol/L (137-145) H 05/08/20 19:10 Potassium 3.5 mmol/L (3.6-5.0) L 05/08/20 19:10 Chloride 110.9 mmol/L (98-107) H 05/08/20 19:10 Carbon Dioxide 26 mmol/L (22-30) 05/08/20 19:10 Anion Gap 13 mmol/L 05/08/20 19:10 BUN 18 mg/dL (9-20) 05/08/20 19:10 Creatinine 1.1 mg/dL (0.8-1.3) 05/08/20 19:10 Estimated GFR > 60 ml/min 05/08/20 19:10 BUN/Creatinine Ratio 16 % 05/08/20 19:10 Glucose 114 mg/dL (75-100) H 05/08/20 19:10 POC Glucose 80 mg/dL (70-105) 05/10/20 08:14 Hemoglobin A1c 5.3 % (4-6) 05/08/20 19:10 Calcium 9.7 mg/dL (8.4-10.2) 05/08/20 19:10 Total Bilirubin 0.90 mg/dL (0.1-1.2) 05/08/20 19:10 AST 25 units/L (5-40) 05/08/20 19:10 ALT 10 units/L (7-56) 05/08/20 19:10 Alkaline Phosphatase 84 units/L (35-129) 05/08/20 19:10 Total Protein 6.5 g/dL (6.3-8.2) 05/08/20 19:10 Albumin 3.9 g/dL (3.9-5) 05/08/20 19:10 Albumin/Globulin Ratio 1.5 % 05/08/20 19:10 Triglycerides 76 mg/dL (2-149) 05/08/20 19:10 Cholesterol 126 mg/dL (50-199) 05/08/20 19:10 LDL Cholesterol Direct 68 mg/dL (50-130) 05/08/20 19:10 HDL Cholesterol 47 mg/dL (40-59) 05/08/20 19:10 Cholesterol/HDL Ratio 2.68 % 05/08/20 19:10 TSH 0.524 mlU/mL (0.270-4.200) 05/08/20 19:10 Last Vital Signs Temp 98.0 F 05/12/20 20:27 Pulse 64 05/12/20 20:27 Resp 18 05/12/20 21:39 BP 126/103 05/12/20 20:27 Pulse Ox 75 L 05/12/20 20:27
[2020-05-13] MEDS: DICLOFENAC DR 75 MG TAB PO SCH ×2 (14:12→21:18)
[2020-05-13] MEDS: risperiDONE 1 MG TAB PO SCH ×2 (14:13→21:19)
[2020-05-13] MEDS: LORazepam 0.5 MG TAB PO SCH ×3 (14:13→20:47)
[2020-05-13] MEDS: ASPIRIN EC 81 MG TAB PO SCH (14:14)
[2020-05-13] MEDS: OMEGA-3 FATTY ACIDS/FISH OIL 1 GRAM CAP PO SCH ×2 (14:14→21:13)
[2020-05-13] MEDS: DONEPEZIL 10 MG TAB PO SCH (14:14)
[2020-05-13] MEDS: MEMANTINE 10 MG TAB PO SCH ×2 (14:14→21:18)
[2020-05-13] MEDS: PRAZOSIN 1 MG CAP PO SCH (14:14)
[2020-05-13] MEDS: DIVALPROEX DR 125 MG TAB PO SCH ×2 (14:15→21:18)
[2020-05-13] MEDS: traMADol 50 MG TAB PO PRN (16:45)
[2020-05-13] MEDS: PRAVASTATIN 80 MG TAB PO SCH (21:17)
[2020-05-13] MEDS: MIRTAZAPINE 15 MG TAB PO SCH (21:18)
--- NOTE | 2020-05-14 08:33 | Progress Note ---
Subjective Date of service: 05/14/20 Principal diagnosis: (1) Dementia with behavioral disturbance Subjective Comment: The patient's medical record was reviewed and the patient's medical record was discussed with the nursing staff. The nurse caring for the patient rested well with no issues. During my interview with the patient today he is sleeping. He easily arouses, but drifts back to sleep. He is confused. He's unable to give any insight as to how he is feeling. Reason for continued inpatient psychiatric hospitalization: The patient is improving, will continue to treat and monitor. REVIEW OF SYSTEMS ROS cannot be reliably obtained from the patient due to her confusion and somnolence. MENTAL STATUS EXAMINATION General Appearance and Behavior: Age appropriate, good hygiene, wearing appropriate clothes, cooperative Cooperation: Psychomotor Behavior: Psychomotor normal Mood: N/A Affect and affective range: Flat Thought Process: Tangential Thought Content: confused Speech: nonsensical Suicidal Ideation: N/A Homicidal Ideation: N/A Impulse Control: Unimpaired Insight and Judgment: Impaired Memory: memory impaired Attention: Distractible, Orientation: Alert, but disoriented and confused Assessment and Plan (1) Dementia with behavioral disturbance Current Visit: Yes Status: Acute Treatment Plan Patient admitted for inpatient psychiatric evaluation, medication adjustment and close monitoring The patient's behavior, mood, sleep and appetite will be closely monitored. Patient enrolled in individual and group therapeutic sessions and encouraged to attend. Patient provided with a safe and structured environment. Patient's physical health needs will be addressed by the Hospitalist. Hospitalist Consulted Labs including CBC, CMP, Lipid profile and Hemoglobin A1C levels ordered for baseline reference Social Assessment will be completed and the Molder Helper will work with p atient and family to ensure a suitable and safe disposition Medication adjustment will be made as clinically indicated Start Depakote DR 125mg po BID yesterday No changes today Usual Wellness Jain/Preservation: - Start Melatonin 5 mg po QHS to promote circadian rhythm - Start [place]-3 for brain health, reduce impulsivity, and as adjunctive treatment for mood disorder, continue upon discharge given overall benefits. - Start B1 prophylaxis with 200 mg po for 5 days The patient agreed on the treatment plan, understood the risk, benefit, alternative treatment, potential consequence of no treatment, and gave informed consent. Estimated days:3 Post hospital care: primary care provider, psychiatric provider Case staffed with Dr. Rosado. Medications and Allergies Allergies Allergy/AdvReac Type Severity Reaction Status Date / Time No Known Drug Allergies Allergy Unknown Verified 05/08/20 03:11 Home Medications Medication Instructions Recorded Confirmed Last Taken Type Aspirin EC [Halfprin EC] 81 mg PO QDAY 05/08/20 05/08/20 Unknown History Cyanocobalamin [Vitamin B-12] 1,000 mcg PO QMONTH 05/08/20 05/08/[address] [[place]] 75 mg PO BID 05/08/20 05/08/20 Unknown History LORazepam [Lorazepam] 0.5 mg PO TID 05/08/20 05/08/20 Unknown History Memantine [Namenda] 10 mg PO BID 05/08/20 05/08/20 Unknown History Prazosin [Minipress] 2 mg PO DAILY 05/08/20 05/08/20 Unknown History Simvastatin 40 mg PO HS 05/08/20 05/08/20 Unknown History donepeziL [Aricept] 10 mg PO DAILY 05/08/20 05/08/20 Unknown History traMADoL [Ultram] 50 mg PO TID PRN 05/08/20 05/08/20 Unknown History traZODone [Desyrel] 50 mg PO QHS 05/08/20 05/08/20 Unknown History Active Meds: Active Medications Aspirin (Halfprin Ec) 81 mg PO QDAY REPLACED BY [facility] Last Admin: 05/13/20 14:14 Dose: 81 mg Documented by: Cyanocobalamin (Vitamin B-12) 1,000 mcg PO QMONTH REPLACED BY [facility] Diclofenac Sodium ([place]) 75 mg PO BID REPLACED BY [facility] Last Admin: 05/13/20 21:18 Dose: 75 mg Documented by: Divalproex Sodium ([place]) 125 mg PO BID [facility]PLACED BY [facility] Last Admin: 05/13/20 21:18 Dose: 125 mg Documented by: Donepezil HCl (Aricept) 10 mg PO DAILY [facility] Last Admin: 05/13/20 14:14 Dose: 10 mg Documented by: Fish Oil (Fish Oil) 2,000 mg PO BID [facility] Last Admin: 05/13/20 21:13 Dose: 2,000 mg Documented by: Haloperidol Lactate (Haldol) 5 mg IM Q6H PRN PRN Reason: Agitation Last Admin: 05/12/20 21:38 Dose: 5 mg Documented by: Lorazepam (Ativan) 1 mg IM Q6H PRN PRN Reason: Agitation Lorazepam (Ativan) 0.5 mg PO TID [facility]PL[facility]ED [facility] Last Admin: 05/13/20 20:47 Dose: 0.5 mg Documented by: Memantine (Memantine) 10 mg PO BID [facility] Last Admin: 05/13/20 21:18 Dose: 10 mg Documented by: Mirtazapine (Remeron) 15 mg PO QHS REPLACED BY [facility] Last Admin: 05/13/20 21:18 Dose: 15 mg Documented by: Pravastatin Sodium (Pravachol) 80 mg PO QHS REPLACED BY [facility] Last Admin: 05/13/20 21:17 Dose: 80 mg Documented by: Prazosin HCl (Prazosin) 2 mg PO DAILY REPLACED BY [facility] Last Admin: 05/13/20 14:14 Dose: 2 mg Documented by: Risperidone (Risperdal) 2 mg PO BID [facility]PLACED BY [facility] Last Admin: 05/13/20 21:19 Dose: 2 mg Documented by: Tramadol HCl (Ultram) 50 mg PO TID PRN PRN Reason: arthritis Last Admin: 05/13/20 16:45 Dose: 50 mg Documented by: Results - Results Labs/Vitals: Laboratory Last Values WBC 8.7 K/mm3 (4.5-11.0) 05/08/20 19:10 RBC 3.97 M/mm3 (3.65-5.03) 05/08/20 19:10 Hgb 13.1 gm/dl (11.8-15.2) 05/08/20 19:10 Hct 38.7 % (35.5-45.6) 05/08/20 19:10 MCV 98 fl (84-94) H 05/08/20 19:10 MCH 33 pg (28-32) H 05/08/20 19:10 MCHC 34 % (32-34) 05/08/20 19:10 RDW 15.3 % (13.2-15.2) H 05/08/20 19:10 Plt Count 228 K/mm3 (140-440) 05/08/20 19:10 Lymph % (Auto) 13.1 % (13.4-35.0) L 05/08/20 19:10 [place] % (Auto) 5.7 % (0.0-7.3) 05/08/20 19:10 Eos % (Auto) 0.2 % (0.0-4.3) 05/08/20 19:10 Baso % (Auto) 0.6 % (0.0-1.8) 05/08/20 19:10 Lymph # (Auto) 1.1 K/mm3 (1.2-5.4) L 05/08/20 19:10 [place] # (Auto) 0.5 K/mm3 (0.0-0.8) 05/08/20 19:10 Eos # (Auto) 0.0 K/mm3 (0.0-0.4) 05/08/20 19:10 Baso # (Auto) 0.0 K/mm3 (0.0-0.1) 05/08/20 19:10 Seg Neutrophils % 80.4 % (40.0-70.0) H 05/08/20 19:10 Seg Neutrophils # 7.0 K/mm3 (1.8-7.7) 05/08/20 19:10 Sodium 146 mmol/L (137-145) H 05/08/20 19:10 Potassium 3.5 mmol/L (3.6-5.0) L 05/08/20 19:10 Chloride 110.9 mmol/L (98-107) H 05/08/20 19:10 Carbon Dioxide 26 mmol/L (22-30) 05/08/20 19:10 Anion Gap 13 mmol/L 05/08/20 19:10 BUN 18 mg/dL (9-20) 05/08/20 19:10 Creatinine 1.1 mg/dL (0.8-1.3) 05/08/20 19:10 Estimated GFR > 60 ml/min 05/08/20 19:10 BUN/Creatinine Ratio 16 % 05/08/20 19:10 Glucose 114 mg/dL (75-100) H 05/08/20 19:10 POC Glucose 80 mg/dL (70-105) 05/10/20 08:14 Hemoglobin A1c 5.3 % (4-6) 05/08/20 19:10 Calcium 9.7 mg/dL (8.4-10.2) 05/08/20 19:10 Total Bilirubin 0.90 mg/dL (0.1-1.2) 05/08/20 19:10 AST 25 units/L (5-40) 05/08/20 19:10 ALT 10 units/L (7-56) 05/08/20 19:10 Alkaline Phosphatase 84 units/L (35-129) 05/08/20 19:10 Total Protein 6.5 g/dL (6.3-8.2) 05/08/20 19:10 Albumin 3.9 g/dL (3.9-5) 05/08/20 19:10 Albumin/Globulin Ratio 1.5 % 05/08/20 19:10 Triglycerides 76 mg/dL (2-149) 05/08/20 19:10 Cholesterol 126 mg/dL (50-199) 05/08/20 19:10 LDL Cholesterol Direct 68 mg/dL (50-130) 05/08/20 19:10 HDL Cholesterol 47 mg/dL (40-59) 05/08/20 19:10 Cholesterol/HDL Ratio 2.68 % 05/08/20 19:10 TSH 0.524 mlU/mL (0.270-4.200) 05/08/20 19:10 Last Vital Signs Temp 97.6 F 05/13/20 23:18 Pulse 106 H 05/13/20 23:18 Resp 20 05/13/20 23:18 BP 121/67 05/13/20 23:18 Pulse Ox 95 05/13/20 23:18
[2020-05-14] MEDS: DIVALPROEX DR 125 MG TAB PO SCH ×2 (10:44→21:07)
[2020-05-14] MEDS: MEMANTINE 10 MG TAB PO SCH ×2 (10:45→21:07)
[2020-05-14] MEDS: DONEPEZIL 10 MG TAB PO SCH (10:45)
[2020-05-14] MEDS: ASPIRIN EC 81 MG TAB PO SCH (10:45)
[2020-05-14] MEDS: OMEGA-3 FATTY ACIDS/FISH OIL 1 GRAM CAP PO SCH ×2 (10:45→21:08)
[2020-05-14] MEDS: LORazepam 0.5 MG TAB PO SCH ×3 (10:45→20:23)
[2020-05-14] MEDS: PRAZOSIN 1 MG CAP PO SCH (10:45)
[2020-05-14] MEDS: risperiDONE 1 MG TAB PO SCH ×2 (10:45→21:07)
[2020-05-14] MEDS: DICLOFENAC DR 75 MG TAB PO SCH ×2 (10:46→21:07)
[2020-05-14] MEDS: PRAVASTATIN 80 MG TAB PO SCH (21:07)
[2020-05-14] MEDS: MIRTAZAPINE 15 MG TAB PO SCH (21:07)
--- NOTE | 2020-05-15 08:34 | Progress Note ---
Subjective Date of service: 05/15/20 Principal diagnosis: (1) Dementia with behavioral disturbance Subjective Comment: The patient's medical record was reviewed and the patient's medical record was discussed with the nursing staff. The nurse note states the patient rested well last night. During my interview with the patient today he is sleeping. He easily arouses, but drifts back to sleep. He is confused. He's unable to give any insight as to how he is feeling. The patient did says "fine," when asked how was he feeling. Reason for continued inpatient psychiatric hospitalization: The patient is improving, will continue to treat and monitor. REVIEW OF SYSTEMS ROS cannot be reliably obtained from the patient due to her confusion and somnolence. MENTAL STATUS EXAMINATION General Appearance and Behavior: Age appropriate, good hygiene, wearing appropriate clothes, cooperative Cooperation: Psychomotor Behavior: Psychomotor normal Mood: fine Affect and affective range: Flat Thought Process: Tangential Thought Content: confused Speech: nonsensical Suicidal Ideation: N/A Homicidal Ideation: N/A Impulse Control: Unimpaired Insight and Judgment: Impaired Memory: memory impaired Attention: Distractible, Orientation: Alert, but disoriented and confused Assessment and Plan (1) Dementia with behavioral disturbance Current Visit: Yes Status: Acute Treatment Plan Patient admitted for inpatient psychiatric evaluation, medication adjustment and close monitoring The patient's behavior, mood, sleep and appetite will be closely monitored. Patient enrolled in individual and group therapeutic sessions and encouraged to attend. Patient provided with a safe and structured environment. Patient's physical health needs will be addressed by the Hospitalist. Hospitalist Consulted Labs including CBC, CMP, Lipid profile and Hemoglobin A1C levels ordered for baseline reference Social Assessment will be completed and the Staking Engineer will work with patient and family to ensure a suitable and safe disposition Medication adjustment will be made as clinically indicated No changes today Usual Wellness Buddhism/Preservation: - Start Melatonin 5 mg po QHS to promote circadian rhythm - Start [place]-3 for brain health, reduce impulsivity, and as adjunctive treatm ent for mood disorder, continue upon discharge given overall benefits. - Start B1 prophylaxis with 200 mg po for 5 days The patient agreed on the treatment plan, understood the risk, benefit, altern ative treatment, potential consequence of no treatment, and gave informed consent. Estimated days:3 Post hospital care: primary care provider, psychiatric provider Case staffed with Dr. Rosado. Medications and Allergies Allergies Allergy/AdvReac Type Severity Reaction Status Date / Time No Known Drug Allergies Allergy Unknown Verified 05/08/20 03:11 Home Medications Medication Instructions Recorded Confirmed Last Taken Type Aspirin EC [Halfprin EC] 81 mg PO QDAY 05/08/20 05/08/20 Unknown History Cyanocobalamin [Vitamin B-12] 1,000 mcg PO QMONTH 05/08/20 05/08/[address] [[place]] 75 mg PO BID 05/08/20 05/08/20 Unknown History LORazepam [Lorazepam] 0.5 mg PO TID 05/08/20 05/08/20 Unknown History Memantine [Namenda] 10 mg PO BID 05/08/20 05/08/20 Unknown History Prazosin [Minipress] 2 mg PO DAILY 05/08/20 05/08/20 Unknown History Simvastatin 40 mg PO HS 05/08/20 05/08/20 Unknown History donepeziL [Aricept] 10 mg PO DAILY 05/08/20 05/08/20 Unknown History traMADoL [Ultram] 50 mg PO TID PRN 05/08/20 05/08/20 Unknown History traZODone [Desyrel] 50 mg PO QHS 05/08/20 05/08/20 Unknown History Active Meds: Active Medications Aspirin (Halfprin Ec) 81 mg PO QDAY [facility] Last Admin: 05/14/20 10:45 Dose: 81 mg Documented by: Cyanocobalamin (Vitamin B-12) 1,000 mcg PO QMONTH [facility] Diclofenac Sodium ([place] Cooper) 75 mg PO BID [facility] Last Admin: 05/14/20 21:07 Dose: 75 mg Documented by: Divalproex Sodium ([place] Cooper) 125 mg PO BID [facility] Last Admin: 05/14/20 21:07 Dose: 125 mg Documented by: Donepezil HCl (Aricept) 10 mg PO DAILY [facility] Last Admin: 05/14/20 10:45 Dose: 10 mg Documented by: Fish Oil (Fish Oil) 2,000 mg PO BID [facility] Last Admin: 05/14/20 21:08 Dose: Not Given Documented by: Haloperidol Lactate (Haldol) 5 mg IM Q6H PRN PRN Reason: Agitation Last Admin: 05/12/20 21:38 Dose: 5 mg Documented by: Lorazepam (Ativan) 1 mg IM Q6H PRN PRN Reason: Agitation Lorazepam (Ativan) 0.5 mg PO TID [facility] Last Admin: 05/14/20 20:23 Dose: 0.5 mg Documented by: Memantine (Memantine) 10 mg PO BID [facility] Last Admin: 05/14/20 21:07 Dose: 10 mg Documented by: Mirtazapine (Remeron) 15 mg PO QHS [facility] Last Admin: 05/14/20 21:07 Dose: 15 mg Documented by: Pravastatin Sodium (Pravachol) 80 mg PO QHS [facility] Last Admin: 05/14/20 21:07 Dose: 80 mg Documented by: Prazosin HCl (Prazosin) 2 mg PO DAILY [facility] Last Admin: 05/14/20 10:45 Dose: 2 mg Documented by: Risperidone (Risperdal) 2 mg PO BID [facility] Last Admin: 05/14/20 21:07 Dose: 2 mg Documented by: Tramadol HCl (Ultram) 50 mg PO TID PRN PRN Reason: arthritis Last Admin: 05/13/20 16:45 Dose: 50 mg Documented by: Results - Results Labs/Vitals: Laboratory Last Values WBC 8.7 K/mm3 (4.5-11.0) 05/08/20 19:10 RBC 3.97 M/mm3 (3.65-5.03) 05/08/20 19:10 Hgb 13.1 gm/dl (11.8-15.2) 05/08/20 19:10 Hct 38.7 % (35.5-45.6) 05/08/20 19:10 MCV 98 fl (84-94) H 05/08/20 19:10 MCH 33 pg (28-32) H 05/08/20 19:10 MCHC 34 % (32-34) 05/08/20 19:10 RDW 15.3 % (13.2-15.2) H 05/08/20 19:10 Plt Count 228 K/mm3 (140-440) 05/08/20 19:10 Lymph % (Auto) 13.1 % (13.4-35.0) L 05/08/20 19:10 [place] % (Auto) 5.7 % (0.0-7.3) 05/08/20 19:10 Eos % (Auto) 0.2 % (0.0-4.3) 05/08/20 19:10 Baso % (Auto) 0.6 % (0.0-1.8) 05/08/20 19:10 Lymph # (Auto) 1.1 K/mm3 (1.2-5.4) L 05/08/20 19:10 [place] # (Auto) 0.5 K/mm3 (0.0-0.8) 05/08/20 19:10 Eos # (Auto) 0.0 K/mm3 (0.0-0.4) 05/08/20 19:10 Baso # (Auto) 0.0 K/mm3 (0.0-0.1) 05/08/20 19:10 Seg Neutrophils % 80.4 % (40.0-70.0) H 05/08/20 19:10 Seg Neutrophils # 7.0 K/mm3 (1.8-7.7) 05/08/20 19:10 Sodium 146 mmol/L (137-145) H 05/08/20 19:10 Potassium 3.5 mmol/L (3.6-5.0) L 05/08/20 19:10 Chloride 110.9 mmol/L (98-107) H 05/08/20 19:10 Carbon Dioxide 26 mmol/L (22-30) 05/08/20 19:10 Anion Gap 13 mmol/L 05/08/20 19:10 BUN 18 mg/dL (9-20) 05/08/20 19:10 Creatinine 1.1 mg/dL (0.8-1.3) 05/08/20 19:10 Estimated GFR > 60 ml/min 05/08/20 19:10 BUN/Creatinine Ratio 16 % 05/08/20 19:10 Glucose 114 mg/dL (75-100) H 05/08/20 19:10 POC Glucose 80 mg/dL (70-105) 05/10/20 08:14 Hemoglobin A1c 5.3 % (4-6) 05/08/20 19:10 Calcium 9.7 mg/dL (8.4-10.2) 05/08/20 19:10 Total Bilirubin 0.90 mg/dL (0.1-1.2) 05/08/20 19:10 AST 25 units/L (5-40) 05/08/20 19:10 ALT 10 units/L (7-56) 05/08/20 19:10 Alkaline Phosphatase 84 units/L (35-129) 05/08/20 19:10 Total Protein 6.5 g/dL (6.3-8.2) 05/08/20 19:10 Albumin 3.9 g/dL (3.9-5) 05/08/20 19:10 Albumin/Globulin Ratio 1.5 % 05/08/20 19:10 Triglycerides 76 mg/dL (2-149) 05/08/20 19:10 Cholesterol 126 mg/dL (50-199) 05/08/20 19:10 LDL Cholesterol Direct 68 mg/dL (50-130) 05/08/20 19:10 HDL Cholesterol 47 mg/dL (40-59) 05/08/20 19:10 Cholesterol/HDL Ratio 2.68 % 05/08/20 19:10 TSH 0.524 mlU/mL (0.270-4.200) 05/08/20 19:10 Last Vital Signs Temp 98.4 F 05/14/20 22:00 Pulse 112 H 05/14/20 22:00 Resp 18 05/14/20 22:00 BP 147/74 05/14/20 22:00 Pulse Ox 96 05/14/20 22:00
[2020-05-15] MEDS: MEMANTINE 10 MG TAB PO SCH ×2 (13:17→21:45)
[2020-05-15] MEDS: LORazepam 0.5 MG TAB PO SCH ×3 (13:18→20:42)
[2020-05-15] MEDS: DICLOFENAC DR 75 MG TAB PO SCH ×2 (13:18→21:44)
[2020-05-15] MEDS: DONEPEZIL 10 MG TAB PO SCH (13:18)
[2020-05-15] MEDS: risperiDONE 1 MG TAB PO SCH ×2 (13:18→21:46)
[2020-05-15] MEDS: OMEGA-3 FATTY ACIDS/FISH OIL 1 GRAM CAP PO SCH ×2 (13:19→21:46)
[2020-05-15] MEDS: ASPIRIN EC 81 MG TAB PO SCH (13:19)
[2020-05-15] MEDS: DIVALPROEX DR 125 MG TAB PO SCH ×2 (13:19→21:44)
[2020-05-15] MEDS: PRAZOSIN 1 MG CAP PO SCH (13:40)
[2020-05-15] MEDS: PRAVASTATIN 80 MG TAB PO SCH (21:45)
[2020-05-15] MEDS: MIRTAZAPINE 15 MG TAB PO SCH (21:45)
--- NOTE | 2020-05-16 09:26 | Progress Note ---
Subjective Date of service: 05/16/20 Principal diagnosis: (1) Dementia with behavioral disturbance Subjective Comment: The patient's medical record was reviewed and the patient's medical record was discussed with the nursing staff. Nursing staff says the patient has been sleeping a lot and has unsteady gait. During my interview with the patient today he is sleeping. He easily arouses. He is confused. The patient says "fine" when asked how was he doing. He's unable to give any insight into what is going on with him. Reason for continued inpatient psychiatric hospitalization: Will consult PT to assess the patient's strength and gait. Will adjust meds to decrease drowsiness and continue to monitor. REVIEW OF SYSTEMS ROS cannot be reliably obtained from the patient due to her confusion and somnolence. MENTAL STATUS EXAMINATION General Appearance and Behavior: Age appropriate, good hygiene, wearing appropriate clothes, cooperative Cooperation: Psychomotor Behavior: Psychomotor normal Mood: fine Affect and affective range: Flat Thought Process: Tangential Thought Content: confused Speech: nonsensical Suicidal Ideation: N/A Homicidal Ideation: N/A Impulse Control: Unimpaired Insight and Judgment: Impaired Memory: memory impaired Attention: Distractible, Orientation: Alert, but disoriented and confused Assessment and Plan (1) Dementia with behavioral disturbance Current Visit: Yes Status: Acute Treatment Plan Patient admitted for inpatient psychiatric evaluation, medication adjustment and close monitoring The patient's behavior, mood, sleep and appetite will be closely monitored. Patient enrolled in individual and group therapeutic sessions and encouraged to attend. Patient provided with a safe and structured environment. Patient's physical health needs will be addressed by the Hospitalist. Hospitalist Consulted Labs including CBC, CMP, Lipid profile and Hemoglobin A1C levels ordered for baseline reference PT eval/treat Social Assessment will be completed and the Inletter will work with patient and family to ensure a suitable and safe disposition Medication adjustment will be made as clinically indicated D/c depakote Decrease Ativan 0.5mg po BID Usual Wellness Jew/Preservation: - Start Melatonin 5 mg po QHS to promote circadian rhythm - Start [place]-3 for brain health, reduce impulsivity, and as adjunctive treatment for mood disorder, continue upon discharge given overall benefits. - Start B1 prophylaxis with 200 mg po for 5 days The patient agreed on the treatment plan, understood the risk, benefit, alternative treatment, potential consequence of no treatment, and gave informed consent. Estimated days: 3 Post hospital care: primary care provider, psychiatric provider Case staffed with Dr. Rosado. Medications and Allergies Allergies Allergy/AdvReac Type Severity Reaction Status Date / Time No Known Drug Allergies Allergy Unknown Verified 05/08/20 03:11 Home Medications Medication Instructions Recorded Confirmed Last Taken Type Aspirin EC [Halfprin EC] 81 mg PO QDAY 05/08/20 05/08/20 Unknown History Cyanocobalamin [Vitamin B-12] 1,000 mcg PO QMONTH 05/08/20 05/08/[address] [[place]] 75 mg PO BID 05/08/20 05/08/20 Unknown History LORazepam [Lorazepam] 0.5 mg PO TID 05/08/20 05/08/20 Unknown History Memantine [Namenda] 10 mg PO BID 05/08/20 05/08/20 Unknown History Prazosin [Minipress] 2 mg PO DAILY 05/08/20 05/08/20 Unknown History Simvastatin 40 mg PO HS 05/08/20 05/08/20 Unknown History donepeziL [Aricept] 10 mg PO DAILY 05/08/20 05/08/20 Unknown History traMADoL [Ultram] 50 mg PO TID PRN 05/08/20 05/08/20 Unknown History traZODone [Desyrel] 50 mg PO QHS 05/08/20 05/08/20 Unknown History Active Meds: Active Medications Aspirin (Halfprin Ec) 81 mg PO QDAY [facility] Last Admin: 05/15/20 13:19 Dose: 81 mg Documented by: Cyanocobalamin (Vitamin B-12) 1,000 mcg PO QMONTH [facility] Diclofenac Sodium ([place] Cooper) 75 mg PO BID [facility] Last Admin: 05/15/20 21:44 Dose: 75 mg Documented by: Donepezil HCl (Aricept) 10 mg PO DAILY [facility] Last Admin: 05/15/20 13:18 Dose: 10 mg Documented by: Fish Oil (Fish Oil) 2,000 mg PO BID [facility] Last Admin: 05/15/20 21:46 Dose: Not Given Documented by: Haloperidol Lactate (Haldol) 5 mg IM Q6H PRN PRN Reason: Agitation Last Admin: 05/12/20 21:38 Dose: 5 mg Documented by: Lorazepam (Ativan) 1 mg IM Q6H PRN PRN Reason: Agitation Lorazepam (Ativan) 0.5 mg PO BID [facility] Memantine (Memantine) 10 mg PO BID [facility] Last Admin: 05/15/20 21:45 Dose: 10 mg Documented by: Mirtazapine (Remeron) 15 mg PO QHS [facility] Last Admin: 05/15/20 21:45 Dose: 15 mg Documented by: Pravastatin Sodium (Pravachol) 80 mg PO QHS [facility] Last Admin: 05/15/20 21:45 Dose: 80 mg Documented by: Prazosin HCl (Prazosin) 2 mg PO DAILY [facility] Last Admin: 05/15/20 13:40 Dose: 2 mg Documented by: Risperidone (Risperdal) 2 mg PO BID [facility] Last Admin: 05/15/20 21:46 Dose: 2 mg Documented by: Tramadol HCl (Ultram) 50 mg PO TID PRN PRN Reason: arthritis Last Admin: 05/13/20 16:45 Dose: 50 mg Documented by: Results - Results Labs/Vitals: Laboratory Last Values WBC 8.7 K/mm3 (4.5-11.0) 05/08/20 19:10 RBC 3.97 M/mm3 (3.65-5.03) 05/08/20 19:10 Hgb 13.1 gm/dl (11.8-15.2) 05/08/20 19:10 Hct 38.7 % (35.5-45.6) 05/08/20 19:10 MCV 98 fl (84-94) H 05/08/20 19:10 MCH 33 pg (28-32) H 05/08/20 19:10 MCHC 34 % (32-34) 05/08/20 19:10 RDW 15.3 % (13.2-15.2) H 05/08/20 19:10 Plt Count 228 K/mm3 (140-440) 05/08/20 19:10 Lymph % (Auto) 13.1 % (13.4-35.0) L 05/08/20 19:10 [place] % (Auto) 5.7 % (0.0-7.3) 05/08/20 19:10 Eos % (Auto) 0.2 % (0.0-4.3) 05/08/20 19:10 Baso % (Auto) 0.6 % (0.0-1.8) 05/08/20 19:10 Lymph # (Auto) 1.1 K/mm3 (1.2-5.4) L 05/08/20 19:10 [place] # (Auto) 0.5 K/mm3 (0.0-0.8) 05/08/20 19:10 Eos # (Auto) 0.0 K/mm3 (0.0-0.4) 05/08/20 19:10 Baso # (Auto) 0.0 K/mm3 (0.0-0.1) 05/08/20 19:10 Seg Neutrophils % 80.4 % (40.0-70.0) H 05/08/20 19:10 Seg Neutrophils # 7.0 K/mm3 (1.8-7.7) 05/08/20 19:10 Sodium 146 mmol/L (137-145) H 05/08/20 19:10 Potassium 3.5 mmol/L (3.6-5.0) L 05/08/20 19:10 Chloride 110.9 mmol/L (98-107) H 05/08/20 19:10 Carbon Dioxide 26 mmol/L (22-30) 05/08/20 19:10 Anion Gap 13 mmol/L 05/08/20 19:10 BUN 18 mg/dL (9-20) 05/08/20 19:10 Creatinine 1.1 mg/dL (0.8-1.3) 05/08/20 19:10 Estimated GFR > 60 ml/min 05/08/20 19:10 BUN/Creatinine Ratio 16 % 05/08/20 19:10 Glucose 114 mg/dL (75-100) H 05/08/20 19:10 POC Glucose 80 mg/dL (70-105) 05/10/20 08:14 Hemoglobin A1c 5.3 % (4-6) 05/08/20 19:10 Calcium 9.7 mg/dL (8.4-10.2) 05/08/20 19:10 Total Bilirubin 0.90 mg/dL (0.1-1.2) 05/08/20 19:10 AST 25 units/L (5-40) 05/08/20 19:10 ALT 10 units/L (7-56) 05/08/20 19:10 Alkaline Phosphatase 84 units/L (35-129) 05/08/20 19:10 Total Protein 6.5 g/dL (6.3-8.2) 05/08/20 19:10 Albumin 3.9 g/dL (3.9-5) 05/08/20 19:10 Albumin/Globulin Ratio 1.5 % 05/08/20 19:10 Triglycerides 76 mg/dL (2-149) 05/08/20 19:10 Cholesterol 126 mg/dL (50-199) 05/08/20 19:10 LDL Cholesterol Direct 68 mg/dL (50-130) 05/08/20 19:10 HDL Cholesterol 47 mg/dL (40-59) 05/08/20 19:10 Cholesterol/HDL Ratio 2.68 % 05/08/20 19:10 TSH 0.524 mlU/mL (0.270-4.200) 05/08/20 19:10 Last Vital Signs Temp 97.4 F L 05/15/20 22:00 Pulse 82 05/15/20 22:00 Resp 18 05/15/20 22:00 BP 119/46 05/15/20 22:00 Pulse Ox 98 05/15/20 22:00
[2020-05-16] MEDS: ASPIRIN EC 81 MG TAB PO SCH (14:17)
[2020-05-16] MEDS: PRAZOSIN 1 MG CAP PO SCH (14:17)
[2020-05-16] MEDS: MEMANTINE 10 MG TAB PO SCH ×2 (14:18→21:48)
[2020-05-16] MEDS: LORazepam 0.5 MG TAB PO SCH ×3 (14:18→21:48)
[2020-05-16] MEDS: OMEGA-3 FATTY ACIDS/FISH OIL 1 GRAM CAP PO SCH ×2 (14:18→21:47)
[2020-05-16] MEDS: DONEPEZIL 10 MG TAB PO SCH (14:18)
[2020-05-16] MEDS: DICLOFENAC DR 75 MG TAB PO SCH ×2 (14:18→21:46)
[2020-05-16] MEDS: risperiDONE 1 MG TAB PO SCH ×2 (14:18→21:48)
[2020-05-16] MEDS: PRAVASTATIN 80 MG TAB PO SCH (21:47)
[2020-05-16] MEDS: MIRTAZAPINE 15 MG TAB PO SCH (21:48)
[2020-05-17] MEDS: DICLOFENAC DR 75 MG TAB PO SCH ×2 (09:35→21:33)
[2020-05-17] MEDS: OMEGA-3 FATTY ACIDS/FISH OIL 1 GRAM CAP PO SCH ×2 (09:36→21:33)
[2020-05-17] MEDS: risperiDONE 1 MG TAB PO SCH ×2 (09:36→21:35)
[2020-05-17] MEDS: ASPIRIN EC 81 MG TAB PO SCH (09:36)
[2020-05-17] MEDS: MEMANTINE 10 MG TAB PO SCH ×2 (09:36→21:35)
[2020-05-17] MEDS: PRAZOSIN 1 MG CAP PO SCH (09:36)
[2020-05-17] MEDS: LORazepam 0.5 MG TAB PO SCH ×2 (09:36→21:34)
[2020-05-17] MEDS: DONEPEZIL 10 MG TAB PO SCH (09:37)
--- NOTE | 2020-05-17 15:24 | XRay Report ---
CHEST 1 VIEW 05/17/2020 12:47 PM INDICATION / CLINICAL INFORMATION: manage medical conditions. COMPARISON: None available. FINDINGS: SUPPORT DEVICES: None. HEART / MEDIASTINUM: No significant abnormality. LUNGS / PLEURA: There is patchy parenchymal opacity in the left upper lung zone. No pneumothorax. ADDITIONAL FINDINGS: No significant additional findings. IMPRESSION: 1. There is mild patchy parenchymal opacity in the left upper lung zone. This could represent atelect asis or evolving pneumonia. Short-term follow-up chest radiographs are recommended in the next severa l weeks to ensure clearing of the lungs. Signer Name: Hu Caro MD Signed: 05/17/2020 3:19 PM Workstation Name: [id number]
--- NOTE | 2020-05-17 20:41 | Progress Note ---
Assessment and Plan - Patient Problems (1) Dementia with behavioral disturbance Current Visit: Yes Status: Acute Plan to address problem: Verbal prompting, verbal redirection, benzodiazepine therapy as clinical indicated, supportive care. (2) Cerebral atherosclerosis Current Visit: Yes Status: Acute Plan to address problem: Risk factor reduction therapy, supportive care. Aspirin therapy. History Interval history: 74 YO Male with Vascular Dementia with Behavioral Disturbance, Cerebral Atherosclerosis, HLD, PTSD admitted to [facility] for Psychiatric stabilization. Patient seen and evaluated in the recreation room and found to be in no acute distress. No reported nursing events. Hospitalist Physical - Constitutional Vitals: Temp Pulse Resp BP Pulse Ox 97.4 F L 87 19 156/66 98 05/17/20 09:34 05/17/20 09:17 05/17/20 09:17 05/17/20 09:17 05/17/20 09:17 General appearance: Present: no acute distress, well-nourished - EENT Eyes: Present: PERRL, EOM intact ENT: hearing intact - Neck Neck: Present: supple - Respiratory Respiratory effort: normal Respiratory: bilateral: CTA - Cardiovascular Rhythm: regular Heart Sounds: Present: S1 & S2 - Extremities Extremities: no ischemia Peripheral Pulses: within normal limits - Abdominal General gastrointestinal: soft, non-tender, non-distended - Integumentary Integumentary: Present: clear, dry - Psychiatric Psychiatric: cooperative Results - Labs CBC & Chem 7: 05/08/20 19:10 05/08/20 19:10 Labs: Laboratory Last Values WBC 8.7 K/mm3 (4.5-11.0) 05/08/20 19:10 RBC 3.97 M/mm3 (3.65-5.03) 05/08/20 19:10 Hgb 13.1 gm/dl (11.8-15.2) 05/08/20 19:10 Hct 38.7 % (35.5-45.6) 05/08/20 19:10 MCV 98 fl (84-94) H 05/08/20 19:10 MCH 33 pg (28-32) H 05/08/20 19:10 MCHC 34 % (32-34) 05/08/20 19:10 RDW 15.3 % (13.2-15.2) H 05/08/20 19:10 Plt Count 228 K/mm3 (140-440) 05/08/20 19:10 Lymph % (Auto) 13.1 % (13.4-35.0) L 05/08/20 19:10 [place] % (Auto) 5.7 % (0.0-7.3) 05/08/20 19:10 Eos % (Auto) 0.2 % (0.0-4.3) 05/08/20 19:10 Baso % (Auto) 0.6 % (0.0-1.8) 05/08/20 19:10 Lymph # (Auto) 1.1 K/mm3 (1.2-5.4) L 05/08/20 19:10 [place] # (Auto) 0.5 K/mm3 (0.0-0.8) 05/08/20 19:10 Eos # (Auto) 0.0 K/mm3 (0.0-0.4) 05/08/20 19:10 Baso # (Auto) 0.0 K/mm3 (0.0-0.1) 05/08/20 19:10 Seg Neutrophils % 80.4 % (40.0-70.0) H 05/08/20 19:10 Seg Neutrophils # 7.0 K/mm3 (1.8-7.7) 05/08/20 19:10 Sodium 146 mmol/L (137-145) H 05/08/20 19:10 Potassium 3.5 mmol/L (3.6-5.0) L 05/08/20 19:10 Chloride 110.9 mmol/L (98-107) H 05/08/20 19:10 Carbon Dioxide 26 mmol/L (22-30) 05/08/20 19:10 Anion Gap 13 mmol/L 05/08/20 19:10 BUN 18 mg/dL (9-20) 05/08/20 19:10 Creatinine 1.1 mg/dL (0.8-1.3) 05/08/20 19:10 Estimated GFR > 60 ml/min 05/08/20 19:10 BUN/Creatinine Ratio 16 % 05/08/20 19:10 Glucose 114 mg/dL (75-100) H 05/08/20 19:10 POC Glucose 80 mg/dL (70-105) 05/10/20 08:14 Hemoglobin A1c 5.3 % (4-6) 05/08/20 19:10 Calcium 9.7 mg/dL (8.4-10.2) 05/08/20 19:10 Total Bilirubin 0.90 mg/dL (0.1-1.2) 05/08/20 19:10 AST 25 units/L (5-40) 05/08/20 19:10 ALT 10 units/L (7-56) 05/08/20 19:10 Alkaline Phosphatase 84 units/L (35-129) 05/08/20 19:10 Total Protein 6.5 g/dL (6.3-8.2) 05/08/20 19:10 Albumin 3.9 g/dL (3.9-5) 05/08/20 19:10 Albumin/Globulin Ratio 1.5 % 05/08/20 19:10 Triglycerides 76 mg/dL (2-149) 05/08/20 19:10 Cholesterol 126 mg/dL (50-199) 05/08/20 19:10 LDL Cholesterol Direct 68 mg/dL (50-130) 05/08/20 19:10 HDL Cholesterol 47 mg/dL (40-59) 05/08/20 19:10 Cholesterol/HDL Ratio 2.68 % 05/08/20 19:10 TSH 0.524 mlU/mL (0.270-4.200) 05/08/20 19:10 [place]/IV: Voiding Method Toilet Active Medications - Current Medications Current Medications: Generic Name Dose Route Start Last Admin Trade Name Freq PRN Reason Stop Dose Admin Aspirin 81 mg 05/09/20 10:00 05/17/20 09:36 Halfprin Ec PO 81 mg QDAY [facility] Administration Cyanocobalamin 1,000 mcg 06/07/20 10:00 Vitamin B-12 PO QMONTH [facility] Diclofenac Sodium 75 mg 05/08/20 22:00 05/17/20 09:[address] PO 75 mg BID [facility] Administration Donepezil HCl 10 mg 05/09/20 10:00 05/17/20 09:37 Aricept PO 10 mg DAILY [facility] Administration Fish Oil 2,000 mg 05/08/20 12:00 05/17/20 09:36 Fish Oil PO 2,000 mg BID [facility] Administration Haloperidol Lactate 5 mg 05/08/20 03:25 05/12/20 21:38 Haldol IM 5 mg Q6H PRN Administration Agitation Lorazepam 1 mg 05/08/20 03:24 Ativan IM Q6H PRN Agitation Lorazepam 0.5 mg 05/16/20 10:00 05/17/20 09:36 Ativan PO 0.5 mg BID [facility] Administration Memantine 10 mg 05/08/20 22:00 05/17/20 09:36 Memantine PO 10 mg BID [facility] Administration Mirtazapine 15 mg 05/08/20 22:00 05/16/20 21:48 Remeron PO 15 mg QHS [facility] Administration Pravastatin Sodium 80 mg 05/08/20 22:00 05/16/20 21:47 Pravachol PO 80 mg QHS [facility] Administration Prazosin HCl 2 mg 05/09/20 10:00 05/17/20 09:36 Prazosin PO 2 mg DAILY [facility] Administration Risperidone 2 mg 05/12/20 10:00 05/17/20 09:36 Risperdal PO 2 mg BID [facility] Administration Tramadol HCl 50 mg 05/08/20 20:53 05/13/20 16:45 Ultram PO 50 mg TID PRN Administration arthritis Nutrition/Malnutrition Assess - Dietary Evaluation Nutrition/Malnutrition Findings: Nutrition Notes Start: 05/13/20 11:37 Freq: Status: Active Protocol: Document 05/17/20 15:46 CW (Rec: 05/17/20 16:03 CW [email or web address]) Co-Sign 05/17/20 15:46 Nutrition Notes Initial or Follow up Reassessment Other Pertinent Diagnosis dementia, cerebral artherosclerosis Current Diet Regular Labs/Tests reviewed Pertinent Medications Fish oil Height 6 ft Weight 70.1 kg [place] Body Weight (kg) 80.90 BMI 20.9 Weight Status Appropriate Subjective/Other Information Unable to gain access to floor and unable to contact RN x2. Per chart pt eating 25% of meals and 100% ONS. Percent of energy/protein needs met: 71%/66% Burn Absent Trauma Absent GI Symptoms None Current % PO Poor (25-49%) Minimum of two criteria No physical signs of malnutrition #1 Nutrition Diagnosis Inadequate oral intake Diagnosis Progress(for reassessment Continues documentation) Is patient on ventilator? No Is Patient Ambulatory and/or Out of Bed Yes REE-([place]-St. Jeor-ambulatory/OOB) [ 1935.700 [id number]] Calculation Used for Recommendations Sagar Vidal Additional Notes Protein: 70-84 g (1-1.2 g/kg) Fluid: 1 ml/kcal Nutrition Intervention Add Supplement/Snack (indicate name/kcal Ensure Clear TID /protein ) Provides kCal: 720 Provides Protein (gm) 24 Goal #1 Meet at least 80% of energy and protein needs via PO and ONS. Anticipated Discharge Needs: Regular diet and ONS as needed Follow-Up By: 05/19/20 Additional Comments FU for intakes, ONS tolerance
[2020-05-17] MEDS: MIRTAZAPINE 15 MG TAB PO SCH (21:34)
[2020-05-17] MEDS: PRAVASTATIN 80 MG TAB PO SCH (21:36)
[2020-05-18] MEDS: HALOPERIDOL LACTATE 5 MG/1 ML INJ IM PRN (00:12)
--- NOTE | 2020-05-18 09:08 | Discharge Summary ---
Providers - Providers Date of Admission: 05/08/20 09:10 Date of discharge: 05/18/20 Attending physician: ESE RODRIGUEZ MD 05/08/20 03:13 Consult to Physician [CONS] Urgent Comment: Consulting Provider: KEM SALEH Physician Instructions: Reason For Exam: New admission H&P 05/16/20 09:21 Physical Therapy Evaluation and Treat [CONS] Routine Comment: Reason For Exam: assess gait/ increase strength Primary care physician: [employer] Hospitalization Reason for admission: aggitation Admitting Diagnosis: F02.81 - DEMENTIA IN OTH DISEASES CLASSD ELSWHR W BEHAVIORAL DISTURB Hospital course: The patient was provided inpatient psychiatric treatment with safe and supportive care, medication adjustment, adverse effect monitoring, medical evaluations, medical treatments, assessment and psycho-education. The patient's mood, cognition, behavior, moral support are improved and stabilized. St the time of discharge, the patient had no endangering behavior and no debilitating adverse effects. The patient agreed on potential consequences of no treatment and gave informed consent. Disposition: DC/[place]-03 [facility] Time spent for discharge: 36 Allergies/Adverse Reactions: Allergies No Known Drug Allergies Allergy (Verified 05/08/20 03:11) Unknown Vital Signs: Last Vital Signs Temp 97.7 F 05/17/20 19:42 Pulse 89 05/17/20 19:42 Resp 20 05/17/20 19:42 BP 137/63 05/17/20 19:42 Pulse Ox 91 05/17/20 19:42 Last Lab: Laboratory Last Values WBC 8.7 K/mm3 (4.5-11.0) 05/08/20 19:10 RBC 3.97 M/mm3 (3.65-5.03) 05/08/20 19:10 Hgb 13.1 gm/dl (11.8-15.2) 05/08/20 19:10 Hct 38.7 % (35.5-45.6) 05/08/20 19:10 MCV 98 fl (84-94) H 05/08/20 19:10 MCH 33 pg (28-32) H 05/08/20 19:10 MCHC 34 % (32-34) 05/08/20 19:10 RDW 15.3 % (13.2-15.2) H 05/08/20 19:10 Plt Count 228 K/mm3 (140-440) 05/08/20 19:10 Lymph % (Auto) 13.1 % (13.4-35.0) L 05/08/20 19:10 [place] % (Auto) 5.7 % (0.0-7.3) 05/08/20 19:10 Eos % (Auto) 0.2 % (0.0-4.3) 05/08/20 19:10 Baso % (Auto) 0.6 % (0.0-1.8) 05/08/20 19:10 Lymph # (Auto) 1.1 K/mm3 (1.2-5.4) L 05/08/20 19:10 [place] # (Auto) 0.5 K/mm3 (0.0-0.8) 05/08/20 19:10 Eos # (Auto) 0.0 K/mm3 (0.0-0.4) 05/08/20 19:10 Baso # (Auto) 0.0 K/mm3 (0.0-0.1) 05/08/20 19:10 Seg Neutrophils % 80.4 % (40.0-70.0) H 05/08/20 19:10 Seg Neutrophils # 7.0 K/mm3 (1.8-7.7) 05/08/20 19:10 Sodium 146 mmol/L (137-145) H 05/08/20 19:10 Potassium 3.5 mmol/L (3.6-5.0) L 05/08/20 19:10 Chloride 110.9 mmol/L (98-107) H 05/08/20 19:10 Carbon Dioxide 26 mmol/L (22-30) 05/08/20 19:10 Anion Gap 13 mmol/L 05/08/20 19:10 BUN 18 mg/dL (9-20) 05/08/20 19:10 Creatinine 1.1 mg/dL (0.8-1.3) 05/08/20 19:10 Estimated GFR > 60 ml/min 05/08/20 19:10 BUN/Creatinine Ratio 16 % 05/08/20 19:10 Glucose 114 mg/dL (75-100) H 05/08/20 19:10 POC Glucose 80 mg/dL (70-105) 05/10/20 08:14 Hemoglobin A1c 5.3 % (4-6) 05/08/20 19:10 Calcium 9.7 mg/dL (8.4-10.2) 05/08/20 19:10 Total Bilirubin 0.90 mg/dL (0.1-1.2) 05/08/20 19:10 AST 25 units/L (5-40) 05/08/20 19:10 ALT 10 units/L (7-56) 05/08/20 19:10 Alkaline Phosphatase 84 units/L (35-129) 05/08/20 19:10 Total Protein 6.5 g/dL (6.3-8.2) 05/08/20 19:10 Albumin 3.9 g/dL (3.9-5) 05/08/20 19:10 Albumin/Globulin Ratio 1.5 % 05/08/20 19:10 Triglycerides 76 mg/dL (2-149) 05/08/20 19:10 Cholesterol 126 mg/dL (50-199) 05/08/20 19:10 LDL Cholesterol Direct 68 mg/dL (50-130) 05/08/20 19:10 HDL Cholesterol 47 mg/dL (40-59) 05/08/20 19:10 Cholesterol/HDL Ratio 2.68 % 05/08/20 19:10 TSH 0.524 mlU/mL (0.270-4.200) 05/08/20 19:10 Core Measure Documentation - Palliative Care Palliative Care/ Comfort Measures: Not Applicable - Core Measures Any of the following diagnoses?: none Exam - Constitutional Vitals: Temp Pulse Resp BP Pulse Ox 97.7 F 89 20 137/63 91 05/17/20 19:42 05/17/20 19:42 05/17/20 19:42 05/17/20 19:42 05/17/20 19:42 General appearance: Present: no acute distress - EENT Eyes: Present: PERRL, EOM intact ENT: hearing intact, clear oral mucosa - Neck Neck: Present: normal ROM Plan Activity: advance as tolerated Weight Bearing Status: Weight Bear as Tolerated Care Plan Goals: Maintain good and stable mental health Plan of Treatment: The patient should be compliant with medications, not to use drugs, and not to drink alcohol. The patient understands that if suicidal ideas, homicidal ideas or any endangering feeling arise, the patient should seek assistance including, but not limited to crisis hotline, and emergency room. Health Concerns: cerebal atherosclerosis Assessment: Dementia with Behavioral Disturbance Follow up with: PRIMARY CARE, [Primary Care Provider] - 7 Days Prescriptions: Mirtazapine [Remeron 15mg TAB] 15 mg PO QHS #30 tablet [place]-3 Fatty Acids/Fish Oil [Fish Oil] 2,000 mg PO BID #120 capsule risperiDONE [RisperDAL] 2 mg PO BID #120 tablet
[2020-05-18 12:48] VITALS: BP 134/58
[2020-05-18] MEDS: OMEGA-3 FATTY ACIDS/FISH OIL 1 GRAM CAP PO SCH (12:49)
[2020-05-18] MEDS: LORazepam 0.5 MG TAB PO SCH (12:50)
[2020-05-18] MEDS: PRAZOSIN 1 MG CAP PO SCH (12:50)
[2020-05-18] MEDS: risperiDONE 1 MG TAB PO SCH (12:50)
[2020-05-18] MEDS: MEMANTINE 10 MG TAB PO SCH (12:50)
[2020-05-18] MEDS: ASPIRIN EC 81 MG TAB PO SCH (12:50)
[2020-05-18] MEDS: DONEPEZIL 10 MG TAB PO SCH (12:53)
[2020-05-18] MEDS: DICLOFENAC DR 75 MG TAB PO SCH (14:33)
[2020-06-07] MEDS ORDERED: CYANOCOBALAMIN (VIT B-12) 1000 MCG TAB PO SCH (10:00)
== END 2020-05-18 20:30 | DRG 884 ==
LOC: 3A 02:03 → UNDOADMIN 02:03 → 5A 09:10
PROVIDERS: ADMIT Psychiatry & Neurology Psychiatry; ATTEND Psychiatry & Neurology Psychiatry
DX: F03.91 Unspecified dementia, unspecified severity, with behavioral disturbance (principal); Z20.828 Contact with and (suspected) exposure to other viral communicable diseases; E78.5 Hyperlipidemia, unspecified; F43.10 Post-traumatic stress disorder, unspecified; I67.2 Cerebral atherosclerosis; Z79.899 Other long term (current) drug therapy; Z79.82 Long term (current) use of aspirin; Z79.01 Long term (current) use of anticoagulants; Z82.49 Family history of ischemic heart disease and other diseases of the circulatory system
CPT/HCPCS: 36415; 71045; 80053; 80061; 82962; 83036; 84443; 85025; G0378; A9270-GY; J1630; U0003